=== PATIENT | male | born 1960 | race Asian ===

== ENCOUNTER 2016-08-25 22:05 | Emergency (ER) | payer OTHER ==
[~2016-08-25] VITALS: Ht 172.7 cm; Wt 74.8 kg
[~2016-08-25 22:05] MED LIST: ALBU0.0912 IH; ASPI81EC98 PO; AZIL80TA PO; MECL-272 PO; METO50TE2 PO; MONT10TA35 PO; [UNRECOGNIZED DRUG - CODE] PO; [UNRECOGNIZED DRUG - CODE] PO; [UNRECOGNIZED DRUG - CODE] PO
[2016-08-25 22:19] VITALS: BP 169/99
--- NOTE | 2016-08-25 22:44 | NUR ---
PT TAKEN TO BED 7
--- NOTE | 2016-08-25 23:06 | NUR ---
55Y/M PATIENT PRESENTS TO ED WITH C/O EPIGASTRIC PAIN X 4 HRS. PT STATES PAIN STARTED AFTER HAVING DINNER, FEELING NAUSEUS, NO FEVER . DENIES DIARRHEA; SKIN IS PINK/WARM/DRY; AAOX4 WITH EVEN AND STEADY GAIT; LUNGS CLEAR BL; HR EVEN AND REGULAR; PT DENIES ANY FEVER, CP, SOB, OR COUGH AT THIS TIME; PATIENT STATES PAIN OF 10/10 AT THIS TIME; VSS; PATIENT POSITIONED FOR COMFORT; HOB ELEVATED; BEDRAILS UP X2; BED DOWN. ER MD MADE AWARE OF PT STATUS.
--- NOTE | 2016-08-25 23:08 | NUR ---
Dr. Luevano evaluating patient at bedside.
[2016-08-25] MEDS ORDERED: KETOROLAC 30 MG/ML VIAL IVP ONE (23:15)
[2016-08-25] MEDS ORDERED: ONDANSETRON 4 MG/2 ML VIAL IVP ONE (23:15)
[2016-08-25] MEDS ORDERED: NACL 0.9% 1,000 ML IV ONE (23:15)
[2016-08-25 23:48] LABS: HEMATOCRIT 47.4 % (36-52); HEMOGLOBIN 15.3 g/dL (12.0-18.0); MEAN CORPUSCULAR HEMOGLOBIN 26 pg (27-31); MEAN CORPUSCULAR HGB CONC 32 g/dL (33-37); MEAN CORPUSCULAR VOLUME 81 fL (80-94); PLATELET COUNT (AUTO) 504 K/uL (140-450); RED BLOOD CELL COUNT(AUTO) 5.88 MIL/uL (4.20-6.10); RED CELL DISTRIBUTION WIDTH 13.4 % (11.6-13.7); WHITE BLOOD COUNT (AUTO) 10.4 K/uL (4.8-10.8)
[2016-08-25 23:49] LABS: EOSINOPHILS % (MANUAL) 3 % (0-4); LYMPHOCYTES % (MANUAL) 23 % (20-46); MONOCYTES % (MANUAL) 8 % (5-12); NEUTROPHILS % (MANUAL) 66 (43-65)
[2016-08-25 23:52] LABS: ANION GAP 12.6 (8-16); CALCIUM 9.3 mg/dL (8.5-10.1); CARBON DIOXIDE 28.7 mmol/L (21-32); CREATININE 1.3 mg/dL (0.6-1.3); POTASSIUM 3.3 mmol/L (3.5-5.1); TOTAL BILIRUBIN 0.4 mg/dL (0.0-1.0)
[2016-08-25 23:53] LABS: ALBUMIN 4.5 g/dL (3.4-5.0); TOTAL PROTEIN, SERUM 8.3 g/dL (6.4-8.2)
--- NOTE | 2016-08-26 00:15 | NUR ---
TAKE PT. TO US
--- NOTE | 2016-08-26 00:21 | NUR ---
PT RETURN FROM ULTRA [facility]
[2016-08-26] MEDS ORDERED: DICYCLOMINE HCL LIQUID 10 MG/5 ML UDC PO ONE (01:30)
[2016-08-26] MEDS ORDERED: LIDOCAINE VISCOUS 2% 20 ML UDC PO ONE (01:30)
[2016-08-26] MEDS ORDERED: ALUMINUM HYD/MAG/SIMETHICONE 30 ML UDC PO ONE (01:30)
--- NOTE | 2016-08-26 01:50 | NUR ---
Patient discharged with v/s stable. Written and verbal after care instructions given and explained. Patient alert, oriented and verbalized understanding of instructions. Ambulatory with steady gait. All questions addressed prior to discharge. ID band removed. Patient advised to follow up with PMD. Rx of PROTONIX 40 MG, TRAMADOL 50 MG, ZOFRAN ODT 4 MG, MAALOX given. Patient educated on indication of medication including possible reaction and side effects. Opportunity to ask questions provided and answered.
[2016-08-26 02:17] VITALS: BP 136/86
== END 2016-08-26 01:50 | disposition home or self-care (01) ==
LOC: MED 22:05
DX: K29.70 Gastritis, unspecified, without bleeding (principal); I10 Essential (primary) hypertension; J45.909 Unspecified asthma, uncomplicated; Z88.1 Allergy status to other antibiotic agents; Z88.6 Allergy status to analgesic agent
CPT/HCPCS: 36415; 76705; 80053; 83690; 85025; 96361; 96374; 96375; 99285; J1885; J2405; J7030

== ENCOUNTER 2016-10-13 11:10 | Emergency (ER) | payer OTHER ==
[~2016-10-13] VITALS: Ht 203.2 cm; Wt 72.6 kg
[2016-10-13 11:12] VITALS: BP 140/88
--- NOTE | 2016-10-13 11:25 | NUR ---
Pt ambualted to bed 7.
--- NOTE | 2016-10-13 11:28 | NUR ---
Patient taken to x-ray via w/c.
--- NOTE | 2016-10-13 11:32 | NUR ---
Patient back from XRAY via wheelchair per tech.
--- NOTE | 2016-10-13 11:50 | NUR ---
56/M c/o generalized weakness and chest tightness for about a week. Pt states he has hx of asthma and states he has not been feeling well for the past week. Pt also c/o cough and "weird" headache on and off the past week. Pt states he has used his inhaler with no improvement. Pt states he woke up the morning feeling worse, went to fill bottles of water at the store and states he felt worse and drove himself home. Pt states "I feel my chest tight." Chest rises and falls symmetrically. No use of accessory muscles. O2 saturation 99% on RA. Lungs diminshed all throughout. No cough present at this time but patient states he has a cough. AOX4, clear speech, ambulatory with steady gait. Stud Setter strong and equal bilaterally. Pushes strong and equal bilaterally. Radial and pedal pulses +2. No edema. Skin warm and dry, elastic, normal in color for ethnicity. VSS. Pt placed on cardiac montior, pulse oximetry, blood pressure monitoring. Placed in gown. Bed in lowest position, warm blanket provided. All needs addressed. Pt awaiting ERMD.
--- NOTE | 2016-10-13 12:31 | NUR ---
Dr. Jones evaluating patient at bedside.
[2016-10-13 12:42] LABS: BASOPHILS # (AUTO) 0.2 K/uL (0.00-0.22); BASOPHILS % (AUTO) 3.4 % (0.0-2.0); EOSINOPHILS # (AUTO) 0.3 K/uL (0-0.4); EOSINOPHILS % (AUTO) 3.8 % (0.0-4.0); HEMATOCRIT 42.8 % (36-52); HEMOGLOBIN 13.9 g/dL (12.0-18.0); LYMPHOCYTES # (AUTO) 1.3 K/uL (2.0-11.5); LYMPHOCYTES % (AUTO) 18.8 % (20.5-51.1); MEAN CORPUSCULAR HEMOGLOBIN 26 pg (27-31); MEAN CORPUSCULAR HGB CONC 33 g/dL (33-37); MEAN CORPUSCULAR VOLUME 81 fL (80-94); MONOCYTES # (AUTO) 0.4 K/uL (0.8-1.0); MONOCYTES % (AUTO) 5.7 % (1.7-9.3); NEUTROPHILS # (AUTO) 4.5 K/uL (1.8-7.7); NEUTROPHILS % (AUTO) 68.3 % (42.2-75.2); PLATELET COUNT (AUTO) 454 K/uL (140-450); RED BLOOD CELL COUNT(AUTO) 5.28 MIL/uL (4.20-6.10); RED CELL DISTRIBUTION WIDTH 14.2 % (11.6-13.7); WHITE BLOOD COUNT (AUTO) 6.7 K/uL (4.8-10.8)
[2016-10-13 13:02] LABS: ANION GAP 8.4 (8-16); CALCIUM 8.2 mg/dL (8.5-10.1); CARBON DIOXIDE 29.2 mmol/L (21-32); CREATININE 1.1 mg/dL (0.7-1.3); POTASSIUM 3.6 mmol/L (3.5-5.1)
[2016-10-13 13:10] LABS: ALBUMIN 3.8 g/dL (3.4-5.0); TOTAL BILIRUBIN 0.3 mg/dL (0.0-1.0); TOTAL PROTEIN, SERUM 7.2 g/dL (6.4-8.2)
--- NOTE | 2016-10-13 13:10 | NUR ---
Timmy Ontiveros. Pt provided with orange juice and meal tray ordered. Dr. Jones made aware.
--- NOTE | 2016-10-13 13:37 | NUR ---
Food tray provided to patient.
[2016-10-13 14:29] VITALS: BP 119/78
--- NOTE | 2016-10-13 14:29 | NUR ---
Patient discharged with v/s stable. Written and verbal after care instructions given and explained. Patient verbalized understanding. Ambulatory with STEADY GAIT. All questions addressed prior to discharge. Advised to follow up with PMD.
== END 2016-10-13 14:29 | disposition home or self-care (01) ==
LOC: MED 11:10
DX: R53.83 Other fatigue (principal); R06.02 Shortness of breath; R06.2 Wheezing; Z88.1 Allergy status to other antibiotic agents; Z88.5 Allergy status to narcotic agent; J45.909 Unspecified asthma, uncomplicated; I10 Essential (primary) hypertension
CPT/HCPCS: 36415; 71020; 80053; 81002; 82553; 82948; 84484; 85025; 93005; 99285

== ENCOUNTER 2016-12-23 15:15 | Emergency (ER) | payer OTHER ==
[~2016-12-23] VITALS: Ht 172.7 cm; Wt 73.9 kg
[~2016-12-23 15:15] MED LIST changes: -MECL-272 PO
[2016-12-23 15:26] VITALS: BP 135/83
--- NOTE | 2016-12-23 17:15 | NUR ---
PATIENT CALLED FROM LOBBY NO ANSWER PATIENT IS LWBS.
== END 2016-12-23 16:40 | disposition left against medical advice (07) ==
LOC: MED 15:15
DX: R06.02 Shortness of breath (principal); Z53.21 Procedure and treatment not carried out due to patient leaving prior to being seen by health care provider
CPT/HCPCS: 71020; 99281

== ENCOUNTER 2016-12-23 19:27 | Emergency (ER) | payer OTHER ==
[~2016-12-23] VITALS: Ht 172.7 cm; Wt 73.9 kg
[2016-12-23 19:37] VITALS: BP 146/100
--- NOTE | 2016-12-23 19:46 | NUR ---
EKG COMPLETED BY ALYSIA; SHOWN TO MARCIA JACKSON
--- NOTE | 2016-12-23 20:25 | NUR ---
PATIENT TO ER BED 6
--- NOTE | 2016-12-23 20:34 | NUR ---
PATIENT PRESENTS TO ED WITH C/O CHEST TIGHTNESS X 10 DAYS BUT WORSENING LAST 2 DAYS. PT STATES MY PAIN ABOUT 3/10 . DENIES N/V/D; SKIN IS PINK/WARM/DRY; AAOX4 WITH EVEN AND STEADY GAIT; LUNGS CLEAR BL; HR EVEN AND REGULAR; PT DENIES ANY FEVER, SOB, PATIENT STATES PAIN OF 3/10 AT THIS TIME; VSS; PATIENT POSITIONED FOR COMFORT; HOB ELEVATED; BEDRAILS UP X2; BED DOWN. ER MD MADE AWARE OF PT STATUS. PT VERBALIZED WITH A LIT BIT OF COUGHING.
--- NOTE | 2016-12-23 20:43 | NUR ---
PT IN THE PHONE AT THIS TIME, WILL CHECK PT AGAIN LATER.
--- NOTE | 2016-12-23 21:23 | NUR ---
DR. JACKSON AT BEDSIDE
[2016-12-23] MEDS ORDERED: ALBUTEROL SULFATE/IPRATROPIU 3 ML SOL IH ONE (21:25)
[2016-12-23] MEDS ORDERED: predniSONE 20 MG TAB PO ONE (21:25)
--- NOTE | 2016-12-23 21:35 | NUR ---
LAB AND RT AT BEDSIDE
--- NOTE | 2016-12-23 21:35 | NUR ---
Respiratory Therapist at bedside for respiratory intervention.
[2016-12-23 21:47] LABS: BASOPHILS # (AUTO) 0.1 K/uL (0.00-0.22); BASOPHILS % (AUTO) 0.8 % (0.0-2.0); EOSINOPHILS # (AUTO) 0.1 K/uL (0-0.4); EOSINOPHILS % (AUTO) 1.5 % (0.0-4.0); HEMATOCRIT 45.8 % (36-52); HEMOGLOBIN 14.4 g/dL (12.0-18.0); LYMPHOCYTES # (AUTO) 0.5 K/uL (2.0-11.5); LYMPHOCYTES % (AUTO) 5.6 % (20.5-51.1); MEAN CORPUSCULAR HEMOGLOBIN 26 pg (27-31); MEAN CORPUSCULAR HGB CONC 32 g/dL (33-37); MEAN CORPUSCULAR VOLUME 83 fL (80-94); MONOCYTES # (AUTO) 0.2 K/uL (0.8-1.0); NEUTROPHILS # (AUTO) 8.5 K/uL (1.8-7.7); NEUTROPHILS % (AUTO) 90.1 % (42.2-75.2); PLATELET COUNT (AUTO) 500 K/uL (140-450); RED BLOOD CELL COUNT(AUTO) 5.55 MIL/uL (4.20-6.10); RED CELL DISTRIBUTION WIDTH 13.7 % (11.6-13.7); WHITE BLOOD COUNT (AUTO) 9.4 K/uL (4.8-10.8)
[2016-12-23 22:04] LABS: PROTHROMBIN TIME 11.3 secs (10.8-13.4)
[2016-12-23 22:08] LABS: ALBUMIN 4.3 g/dL (3.4-5.0); ANION GAP 9.4 (8-16); CARBON DIOXIDE 28.3 mmol/L (21-32); CREATININE 1.3 mg/dL (0.7-1.3); POTASSIUM 3.7 mmol/L (3.5-5.1); TOTAL BILIRUBIN 0.3 mg/dL (0.0-1.0)
--- NOTE | 2016-12-23 22:24 | NUR ---
PT AAO, SLIGHT THROAT PAIN, ABLE TO USE URINAL OUTPUT 400, OFFER APPLE JUICE AND ONE CUP OF WATER AND PT ACCEPTED IT.VITAL SIGN STABLE.
--- NOTE | 2016-12-23 23:28 | NUR ---
XRAY AT BEDSIDE
[2016-12-24] VITALS: BP 132/77
--- NOTE | 2016-12-24 | NUR ---
Patient discharged with v/s stable. Written and verbal after care instructions given and explained. Patient alert, oriented and verbalized understanding of instructions. Ambulatory with steady gait. All questions addressed prior to discharge. ID band removed. Patient advised to follow up with PMD. Rx of Medrol dose pack given. Patient educated on indication of medication including possible reaction and side effects. Opportunity to ask questions provided and answered.
== END 2016-12-24 | disposition home or self-care (01) ==
LOC: MED 19:27
DX: J45.901 Unspecified asthma with (acute) exacerbation (principal); I10 Essential (primary) hypertension; Z88.1 Allergy status to other antibiotic agents; Z88.5 Allergy status to narcotic agent
CPT/HCPCS: 36415; 71010; 80053; 83880; 84484; 85025; 85610; 85730; 99285; J7512; J7620; Q0092

== ENCOUNTER 2017-04-15 07:49 | Emergency (ER) | payer OTHER ==
[~2017-04-15] VITALS: Ht 170.2 cm; Wt 77.1 kg
[~2017-04-15 07:49] MED LIST changes: +ALBUTEROL SULFATE/IPRATROPIU 3 ML SOL IH ONE
[2017-04-15 07:57] VITALS: BP 141/87
--- NOTE | 2017-04-15 08:08 | NUR ---
PATIENT PRESENTS TO ED WITH cough, nasal congestion, headache, bodyaches, fatigue, sob . PT STATES . DENIES N/V/D; SKIN IS PINK/WARM/DRY; AAOX4 WITH EVEN AND STEADY GAIT; LUNGS diminished CLEAR BL; HR EVEN AND REGULAR; PATIENT STATES PAIN OF 0/10 AT THIS TIME; VSS; PATIENT POSITIONED FOR COMFORT; ER MD MADE AWARE OF PT STATUS.
--- NOTE | 2017-04-15 08:33 | NUR ---
PATIENT TO OF1 AT THIS TIME.
[2017-04-15] MEDS ORDERED: OSELTAMIVIR PHOSPHATE 75 MG CAP PO SCH (09:00)
--- NOTE | 2017-04-15 09:52 | NUR ---
RT AT BEDSIDE.
[2017-04-15] MEDS ORDERED: ALBUTEROL SULFATE/IPRATROPIU 3 ML SOL IH ONE (10:10)
[2017-04-15 10:44] VITALS: BP 133/71
--- NOTE | 2017-04-15 10:44 | NUR ---
Patient discharged with v/s stable. Written and verbal after care instructions given and explained. Patient alert, oriented and verbalized understanding of instructions. Ambulatory with steady gait. All questions addressed prior to discharge. ID band removed. Patient advised to follow up with PMD. Rx of TAMIFLU, LEVAQUIN, MOTRIN, GUAFENUISEN given. Patient educated on indication of medication including possible reaction and side effects. Opportunity to ask questions provided and answered.
== END 2017-04-15 10:44 | disposition home or self-care (01) ==
LOC: MED 07:49
DX: J11.1 Influenza due to unidentified influenza virus with other respiratory manifestations (principal); J32.9 Chronic sinusitis, unspecified; J40 Bronchitis, not specified as acute or chronic; J45.909 Unspecified asthma, uncomplicated; Z79.899 Other long term (current) drug therapy; Z88.5 Allergy status to narcotic agent; Z88.1 Allergy status to other antibiotic agents; Z85.850 Personal history of malignant neoplasm of thyroid
CPT/HCPCS: 36415; 71045; 87804; 94640; 99285; J7620

== ENCOUNTER 2017-08-01 20:03 | Observation (INO) | payer OTHER ==
[~2017-08-01] VITALS: Ht 172.7 cm; Wt 74.4 kg
[~2017-08-01 20:03] MED LIST changes: -ALBUTEROL SULFATE/IPRATROPIU 3 ML SOL IH ONE
[2017-08-01 20:05] VITALS: BP 148/100
[2017-08-01] MEDS ORDERED: NACL 0.9% 1,000 ML IV ONE (22:25)
[2017-08-01] MEDS ORDERED: ASPIRIN 81 MG TAB.CHEW PO ONE (22:25)
[2017-08-01 22:50] LABS: BASOPHILS # (AUTO) 0.1 K/uL (0.00-0.22); BASOPHILS % (AUTO) 0.9 % (0.0-2.0); EOSINOPHILS # (AUTO) 0.3 K/uL (0-0.4); EOSINOPHILS % (AUTO) 5.5 % (0.0-4.0); HEMATOCRIT 40.7 % (36-52); HEMOGLOBIN 13.5 g/dL (12.0-18.0); LYMPHOCYTES # (AUTO) 1.4 K/uL (2.0-11.5); LYMPHOCYTES % (AUTO) 22.9 % (20.5-51.1); MEAN CORPUSCULAR HEMOGLOBIN 27 pg (27-31); MEAN CORPUSCULAR HGB CONC 33 g/dL (33-37); MONOCYTES # (AUTO) 0.7 K/uL (0.8-1.0); MONOCYTES % (AUTO) 11.8 % (1.7-9.3); NEUTROPHILS # (AUTO) 3.6 K/uL (1.8-7.7); NEUTROPHILS % (AUTO) 58.9 % (42.2-75.2); PLATELET COUNT (AUTO) 383 K/uL (140-450); RED BLOOD CELL COUNT(AUTO) 5.02 MIL/uL (4.20-6.10); RED CELL DISTRIBUTION WIDTH 14.4 % (11.6-13.7); WHITE BLOOD COUNT (AUTO) 6.1 K/uL (4.8-10.8)
[2017-08-01 23:00] LABS: ANION GAP 10.4 (8-16); CARBON DIOXIDE 29.8 mmol/L (21-32); CREATININE 1.1 mg/dL (0.7-1.3); POTASSIUM 3.2 mmol/L (3.5-5.1)
[2017-08-01 23:10] LABS: PROTHROMBIN TIME 10.6 secs (10.8-13.4)
[2017-08-01 23:14] LABS: ALBUMIN 3.9 g/dL (3.4-5.0); TOTAL BILIRUBIN 0.3 mg/dL (0.0-1.0)
[2017-08-01] MEDS ORDERED: POTASSIUM CHLORIDE 10 MEQ TABER PO ONE (23:15)
[2017-08-01] MEDS ORDERED: LISINOPRIL 10 MG TAB PO ONE (23:15)
[2017-08-01] MEDS ORDERED: NITROGLYCERIN 2% 1 GM PKT TP ONE (23:15)
[2017-08-01] MEDS ORDERED: fentaNYL 0.05 MG/ML VIAL IVP ONE (23:25)
[2017-08-01] MEDS ORDERED: HYDROcodone/APAP 5/325 MG 1 TAB TAB PO PRN (23:35)
[2017-08-01] MEDS ORDERED: ONDANSETRON 4 MG/2 ML VIAL IVP PRN (23:35)
[2017-08-01] MEDS ORDERED: NITROGLYCERIN 0.4 MG TAB SL PRN (23:35)
[2017-08-01] MEDS ORDERED: MORPHINE SULFATE 2 MG/ML SYR IVP PRN (23:35)
[2017-08-01] MEDS ORDERED: LORazepam 2 MG/ML VIAL IVP PRN (23:35)
[2017-08-01] MEDS ORDERED: ALBUTEROL 0.083% 2.5 MG/3 ML NEBU IH PRN (23:35)
[2017-08-01] MEDS ORDERED: ZOLPIDEM 5 MG TAB PO PRN (23:35)
[2017-08-01] MEDS ORDERED: ACETAMINOPHEN 325 MG TAB PO PRN (23:35)
[2017-08-01] MEDS ORDERED: ROC.25 PO (23:56)
[2017-08-01] MEDS ORDERED: BUDE1AER IH (23:56)
[2017-08-01] MEDS ORDERED: SYN.1 PO (23:56)
[2017-08-02] VITALS: BP 143/94
[2017-08-02 04:00] VITALS: BP 101/63
[2017-08-02 07:58] LABS: BASOPHILS # (AUTO) 0.1 K/uL (0.00-0.22); EOSINOPHILS # (AUTO) 0.3 K/uL (0-0.4); EOSINOPHILS % (AUTO) 3.7 % (0.0-4.0); HEMATOCRIT 42.3 % (36-52); HEMOGLOBIN 13.5 g/dL (12.0-18.0); LYMPHOCYTES # (AUTO) 2.5 K/uL (2.0-11.5); LYMPHOCYTES % (AUTO) 32.1 % (20.5-51.1); MEAN CORPUSCULAR HEMOGLOBIN 26 pg (27-31); MEAN CORPUSCULAR HGB CONC 32 g/dL (33-37); MEAN CORPUSCULAR VOLUME 81.4 fL (80-94); MONOCYTES # (AUTO) 0.6 K/uL (0.8-1.0); MONOCYTES % (AUTO) 7.5 % (1.7-9.3); NEUTROPHILS # (AUTO) 4.4 K/uL (1.8-7.7); NEUTROPHILS % (AUTO) 55.7 % (42.2-75.2); PLATELET COUNT (AUTO) 402 K/uL (140-450); RED BLOOD CELL COUNT(AUTO) 5.19 MIL/uL (4.20-6.10); RED CELL DISTRIBUTION WIDTH 14.7 % (11.6-13.7); WHITE BLOOD COUNT (AUTO) 7.9 K/uL (4.8-10.8)
[2017-08-02 08:00] VITALS: BP 103/58
[2017-08-02 08:51] LABS: ANION GAP 11.5 (8-16); CARBON DIOXIDE 27.2 mmol/L (21-32); CREATININE 1.1 mg/dL (0.7-1.3); POTASSIUM 3.7 mmol/L (3.5-5.1)
[2017-08-02] MEDS ORDERED: METOPROLOL SUCCINATE 50 MG TABER PO SCH (09:00)
[2017-08-02] MEDS ORDERED: ENOXAPARIN 40 MG/0.4 ML SYR SUBQ SCH (09:00)
[2017-08-02] MEDS ORDERED: METOPROLOL 25 MG TAB PO SCH (09:00)
[2017-08-02] MEDS ORDERED: MONTELUKAST SODIUM 10 MG TAB PO SCH (09:00)
[2017-08-02] MEDS ORDERED: ASPIRIN 81 MG TAB.CHEW PO SCH (09:00)
[2017-08-02] MEDS ORDERED: AZILSARTAN MEDOXOMIL 80 MG PO SCH (09:00)
[2017-08-02 09:07] LABS: CREATINE KINASE MB 1.1 ng/mL (0-3.6)
[2017-08-02 12:00] VITALS: BP 99/61
[2017-08-02 16:00] VITALS: BP 111/68
== END 2017-08-02 17:55 | disposition home or self-care (01) ==
LOC: MED 20:03 → MTU 23:41
PROVIDERS: ADMIT Hospitalist; ATTEND Hospitalist
DX: R07.89 Other chest pain (principal); I10 Essential (primary) hypertension; E11.9 Type 2 diabetes mellitus without complications; I34.1 Nonrheumatic mitral (valve) prolapse; E03.9 Hypothyroidism, unspecified; I25.10 Atherosclerotic heart disease of native coronary artery without angina pectoris; J45.909 Unspecified asthma, uncomplicated
CPT/HCPCS: 36415; 71045; 80048; 80053; 82550; 82553; 82948; 84484; 85025; 85610; 85730; 87081; 93017; 94640; 94660; 96360; 96372; 99285; G0378; J1650; J7030; J7613

== ENCOUNTER 2017-08-12 07:09 | Emergency (ER) | payer OTHER ==
[~2017-08-12] VITALS: Ht 172.7 cm; Wt 75.0 kg
[~2017-08-12 07:09] MED LIST changes: +BUDE1AER IH; +ROC.25 PO; +SYN.1 PO
[2017-08-12 07:25] VITALS: BP 128/84
--- NOTE | 2017-08-12 07:28 | NUR ---
PT AMBULATES TO BED 11
--- NOTE | 2017-08-12 07:30 | NUR ---
56 YO M BIB SELF W/ C/O FEELING LIKE HE HAS CHEST CONGESTION, A "TIGHT, ASTHMA-ATTACK" TYPE FEELING BUT PT DENIES HAVING SOB. STATES HE HAS A STUFFY NOSE AND PRODUCTIVE-COUGH (CLEAR PHLEGM) X 1 WEEK. PT REPORTS HE WAS HERE 08/01/17 AND STAYED OVER NIGHT, THEN WENT TO [facility] AND RECEIVED ANTIBIOTICS BUT HAS BEEN UNABLE TO FILL THEM DUE TO INSURANCE STATING THEY WILL NOT COVER IT AND THE PHYSICIAN HAS NOT CHANGED THE ANTIBIOTIC AT THIS TIME. PT REQUESTING AN ANTIBIOTIC. PT A & O X 4. GCS 15. CMS INTACT. RR EVEN AND UNLABORED AT THIS TIME. LUNG SOUNDS CLEAR. ABD SOFT, NON-TENDER. ER MD IQBAL NOTIFIED. PT NEEDS MET. SAFETY PRECAUTIONS IN PLACE. WILL CONTINUE TO MONITOR.
[2017-08-12] MEDS ORDERED: IPRATROPIUM 0.02% 0.5 MG/2.5 ML NEBU INH ONE (07:40)
[2017-08-12] MEDS ORDERED: ALBUTEROL 0.083% 2.5 MG/3 ML NEBU INH ONE (07:40)
--- NOTE | 2017-08-12 08:30 | NUR ---
Pt resting comfortably in bed at this time. will continue to monitor.
[2017-08-12 09:23] VITALS: BP 124/78
--- NOTE | 2017-08-12 09:23 | NUR ---
Patient discharged with v/s stable. Written and verbal after care instructions given and explained. Patient alert, oriented and verbalized understanding of instructions. Ambulatory with steady gait. All questions addressed prior to discharge. ID band removed. Patient advised to follow up with PMD. Rx of Bethel Alford given. Patient educated on indication of medication including possible reaction and side effects. Opportunity to ask questions provided and answered.
== END 2017-08-12 09:23 | disposition home or self-care (01) ==
LOC: MED 07:09
DX: J45.901 Unspecified asthma with (acute) exacerbation (principal); I10 Essential (primary) hypertension; Z85.850 Personal history of malignant neoplasm of thyroid; E89.0 Postprocedural hypothyroidism; Z88.1 Allergy status to other antibiotic agents; Z88.6 Allergy status to analgesic agent; Z79.82 Long term (current) use of aspirin
CPT/HCPCS: 94640; 99283; J7613; J7644

== ENCOUNTER 2017-08-29 19:49 | Emergency (ER) | payer OTHER ==
[~2017-08-29] VITALS: Ht 170.2 cm; Wt 73.0 kg
[2017-08-29 19:51] VITALS: BP 148/90
[2017-08-29 22:49] VITALS: BP 132/85
== END 2017-08-29 22:49 | disposition home or self-care (01) ==
LOC: MED 19:49
DX: J02.9 Acute pharyngitis, unspecified (principal); R05 Cough; R06.02 Shortness of breath; J45.909 Unspecified asthma, uncomplicated; I10 Essential (primary) hypertension; E07.9 Disorder of thyroid, unspecified; I25.10 Atherosclerotic heart disease of native coronary artery without angina pectoris; Z85.850 Personal history of malignant neoplasm of thyroid; Z79.899 Other long term (current) drug therapy; Z88.5 Allergy status to narcotic agent; Z88.1 Allergy status to other antibiotic agents
CPT/HCPCS: 71046; 99284

== ENCOUNTER 2018-01-10 05:19 | Emergency (ER) | payer OTHER ==
[~2018-01-10] VITALS: Ht 170.2 cm; Wt 74.8 kg
[2018-01-10 05:29] VITALS: BP 120/87
--- NOTE | 2018-01-10 05:34 | NUR ---
PT PRESENTS TO ED WITH SUPRAPUBIC LOWER ABD PAIN RADIATING TO LEFT LOWER BACK AND BURNING WITH URINATION. PT STATES TREATED FOR UTI X1 WEEK AGO AND FINISHED X1 WK OF ANTIBIOTICS. PT STATES PAIN UNRELIEVED. PT HAS HX OF KIDNEY STONES AND HAD THYROID CANCER X8 MONTHS AGO AND HAD THYROID REMOVED. PT ALSO HAS SECOND C/O GENERALIZED FATIGUE X2 WKS. HE IS CONCERNED REGARDING FATIGUE CONSIDERING HIS RECENT DX OF THYROID CANCER. VSS. AFEBRILE. POSITIONED IN BED FOR COMFORT. A&OX4. ER MD AWARE. CONTINUE TO MONITOR.
--- NOTE | 2018-01-10 05:34 | NUR ---
TO BED # 9 AMBULATORY, REPORT GIVEN TO OLMAN MOHAN
[2018-01-10] MEDS ORDERED: KETOROLAC 30 MG/ML VIAL IVP ONE (05:55)
[2018-01-10] MEDS ORDERED: NACL 0.9% 1,000 ML IV ONE (05:55)
[2018-01-10] MEDS ORDERED: ONDANSETRON 4 MG/2 ML VIAL IVP ONE (05:55)
--- NOTE | 2018-01-10 06:43 | NUR ---
PT RETURN FROM CT
[2018-01-10 06:59] LABS: BASOPHILS # (AUTO) 0.1 K/uL (0.00-0.22); BASOPHILS % (AUTO) 1.4 % (0.0-2.0); EOSINOPHILS # (AUTO) 0.4 K/uL (0-0.4); EOSINOPHILS % (AUTO) 5.9 % (0.0-4.0); HEMATOCRIT 42.2 % (36-52); LYMPHOCYTES # (AUTO) 1.4 K/uL (2.0-11.5); LYMPHOCYTES % (AUTO) 23.2 % (20.5-51.1); MEAN CORPUSCULAR HEMOGLOBIN 27 pg (27-31); MEAN CORPUSCULAR HGB CONC 33 g/dL (33-37); MEAN CORPUSCULAR VOLUME 80.4 fL (80-94); MONOCYTES # (AUTO) 0.6 K/uL (0.8-1.0); MONOCYTES % (AUTO) 9.4 % (1.7-9.3); NEUTROPHILS # (AUTO) 3.7 K/uL (1.8-7.7); NEUTROPHILS % (AUTO) 60.1 % (42.2-75.2); PLATELET COUNT (AUTO) 433 K/uL (140-450); RED BLOOD CELL COUNT(AUTO) 5.25 MIL/uL (4.20-6.10); WHITE BLOOD COUNT (AUTO) 6.2 K/uL (4.8-10.8)
--- NOTE | 2018-01-10 07:04 | NUR ---
PT STATES PAIN 5/10 AND ACCEPTABLE LEVEL OF PAIN AT THIS TIME. VSS. CONTINUE TO MONITOR.
--- NOTE | 2018-01-10 07:17 | NUR ---
PT. RESTING IN BED , RR EVEN AND UNLABORED. PT. PROVIDED WITH SOCKS. VSS. WILL CONTINUE TO MONITOR.
[2018-01-10 07:19] LABS: ALBUMIN 3.8 g/dL (3.4-5.0); ANION GAP 8.2 (8-16); CARBON DIOXIDE 29.3 mmol/L (21-32); CREATININE 1.2 mg/dL (0.7-1.3); POTASSIUM 3.5 mmol/L (3.5-5.1); TOTAL BILIRUBIN 0.5 mg/dL (0.0-1.0)
[2018-01-10 07:55] LABS: APPEARANCE,URINE CLEAR (CLEAR); BILIRUBIN,URINE NEGATIVE (NEGATIVE); BLOOD, URINE NEGATIVE (NEGATIVE); COLOR,URINE YELLOW (YELLOW); LEUKOCYTE ESTERASE ,URINE NEGATIVE (NEGATIVE); NITRITE, URINE NEGATIVE (NEGATIVE); UGLUCOSE NEGATIVE (NEGATIVE)
[2018-01-10 08:03] LABS: RBC,URINE 0-5 (RARE) /HPF (0-5)
--- NOTE | 2018-01-10 08:30 | NUR ---
Patient discharged with v/s stable. Written and verbal after care instructions given and explained. Patient alert, oriented and verbalized understanding of instructions. Ambulatory with steady gait. All questions addressed prior to discharge. ID band removed. Patient advised to follow up with PMD. Rx of ZOFRAN, NORCO 5/325, AND CEPHELAXIN 500MG given. Patient educated on indication of medication including possible reaction and side effects. Opportunity to ask questions provided and answered.
[2018-01-10 08:34] VITALS: BP 120/78
== END 2018-01-10 08:30 | disposition home or self-care (01) ==
LOC: MED 05:19
DX: N20.0 Calculus of kidney (principal); J45.909 Unspecified asthma, uncomplicated; Z85.850 Personal history of malignant neoplasm of thyroid; I10 Essential (primary) hypertension; Z90.89 Acquired absence of other organs; Z79.899 Other long term (current) drug therapy; Z88.5 Allergy status to narcotic agent; Z88.1 Allergy status to other antibiotic agents
CPT/HCPCS: 36415; 74176; 80053; 81001; 83690; 85025; 87086; 96374; 96375; 99285; J1885; J2405; J7030

== ENCOUNTER 2018-03-15 08:05 | Inpatient (IN) | payer OTHER ==
[~2018-03-15] VITALS: Ht 170.2 cm; Wt 73.9 kg
[2018-03-15 08:15] VITALS: BP 147/88
--- NOTE | 2018-03-15 08:17 | NUR ---
PATIENT PRESENTS TO ED WITH C/O ELEVATED BLOOD PRESSURE X 1WK WITH H/A, DIZZINESS, NUMBNESS ON BOTH HANDS, RT ARM PAIN; DENIES V/D, HX; HTN, DM, MITRAL VALVE PROLAPSE, ASTHMA, SLEEP APNEA . AAOX4 WITH EVEN AND STEADY GAIT; LUNGS CLEAR BL; HR EVEN AND REGULAR; PT DENIES ANY FEVER, CP, SOB, OR COUGH AT THIS TIME; SKIN IS PINK/WARM/DRY; PATIENT STATES HEADACHE 5/10 AT THIS TIME; VSS; PATIENT POSITIONED FOR COMFORT; HOB ELEVATED; BEDRAILS UP X2; BED DOWN. ER MD MADE AWARE OF PT STATUS.
--- NOTE | 2018-03-15 08:20 | NUR ---
Patient being evaluated by physician at bedside.
[2018-03-15] MEDS ORDERED: ASPIRIN 81 MG TAB.CHEW PO ONE (08:25)
--- NOTE | 2018-03-15 08:29 | NUR ---
X-RAY AT BEDSIDE
[2018-03-15 08:48] LABS: BASOPHILS # (AUTO) 0.1 K/uL (0.00-0.22); BASOPHILS % (AUTO) 0.9 % (0.0-2.0); EOSINOPHILS # (AUTO) 0.3 K/uL (0-0.4); EOSINOPHILS % (AUTO) 4.1 % (0.0-4.0); HEMATOCRIT 43.3 % (36-52); LYMPHOCYTES # (AUTO) 1.2 K/uL (2.0-11.5); MEAN CORPUSCULAR HEMOGLOBIN 26 pg (27-31); MEAN CORPUSCULAR HGB CONC 32 g/dL (33-37); MONOCYTES # (AUTO) 0.5 K/uL (0.8-1.0); NEUTROPHILS # (AUTO) 4.5 K/uL (1.8-7.7); PLATELET COUNT (AUTO) 395 K/uL (140-450); RED BLOOD CELL COUNT(AUTO) 5.35 MIL/uL (4.20-6.10); RED CELL DISTRIBUTION WIDTH 15.4 % (11.6-13.7); WHITE BLOOD COUNT (AUTO) 6.6 K/uL (4.8-10.8)
[2018-03-15 08:56] LABS: CARBON DIOXIDE 27.4 mmol/L (21-32); POTASSIUM 3.4 mmol/L (3.5-5.1)
--- NOTE | 2018-03-15 09:01 | NUR ---
PT STATED HUNGRY, DR. IQBAL COMFIRED OK TO EAT, SNACK OFFERED.
[2018-03-15 09:02] LABS: ALBUMIN 3.7 g/dL (3.4-5.0); TOTAL BILIRUBIN 0.4 mg/dL (0.0-1.0)
[2018-03-15 10:27] LABS: APPEARANCE,URINE CLEAR (CLEAR); BILIRUBIN,URINE NEGATIVE (NEGATIVE); BLOOD, URINE NEGATIVE (NEGATIVE); COLOR,URINE YELLOW (YELLOW); LEUKOCYTE ESTERASE ,URINE NEGATIVE (NEGATIVE); NITRITE, URINE NEGATIVE (NEGATIVE); UGLUCOSE NEGATIVE (NEGATIVE)
[2018-03-15] MEDS ORDERED: ONDANSETRON 4 MG/2 ML VIAL IVP PRN (10:45)
[2018-03-15] MEDS ORDERED: ACETAMINOPHEN 325 MG TAB PO PRN (10:45)
--- NOTE | 2018-03-15 11:10 | NUR ---
PT IS RESTING IN BED, CP 2/10 AT THIS TIME, STATED FEELING BETTER.
--- NOTE | 2018-03-15 11:35 | NUR ---
RECEIVED REPORT FROM ER NURSE AT BEDSIDE. PT ADMITTED FROM HOME.PT CC NUMBNESS IN HIS BOTH UPPER EXTREMITIES . ADMITTING DIAGNOSIS CHEST PAIN. SKIN IS INTACT. VS RECORDED BP 145/91, HR 58, T 97.5, RR 18, DENIES PAIN O2 SAT 97% ON RA. EDUCATED ON USING CALL LIGHT. PT IS AMBULATORY. CARDIAC DIET. HAS RT FA 20 G , SALINE LOCK. NO SIGN OF DISTRESS NOTED. WILL CONTINUE TO MONITOR PT.
--- NOTE | 2018-03-15 11:35 | NUR ---
Patient will be admitted to care of DR. OLIVERA. Admited to TELE. Will go to room 120A. Belongings list completed. Report to KIMBERLEE OVERTON AT BEDSIDE, PT IS IN STABLE CONDITION AT THIS TIME. .
--- NOTE | 2018-03-15 12:22 | NUR ---
PT EATING HIS LUNCH. PT HAS BIPAP MACHINE AT BEDSIDE. INFORMED THAT ITS HOSPITAL POLICY THAT NO EQUIPMENT FROM OUTSIDE CAN BE USED IN HOSPITAL. CAN PROVIDE THE BIPAP MACHINE, IF PT NEEDS TO USE. ASSESSED PT NEUROLOGICAL STATUS. AOX4, CLEAR VOICE. HAS STABLE GAIT. HAS EQUAL STRENGTH ON BOTH UPPER AND THE LOWER EXTREMITIES. PT DENIES ANY CHEST PAIN OR DISCOMFORT AT THIS TIME. WILL CONTINUE TO MONITOR PT.
[2018-03-15] MEDS ORDERED: INSULIN LISPRO SLIDING SCALE 100 UNITS/ML VIAL SUBQ PRN (13:45)
[2018-03-15] MEDS ORDERED: DEXTROSE 50% 50 ML SYR IVP PRN (13:55)
[2018-03-15 14:25] LABS: CREATINE KINASE MB 0.8 ng/mL (0-3.6)
[2018-03-15 16:00] VITALS: BP 126/82
--- NOTE | 2018-03-15 16:30 | NUR ---
CHECKED ON PT. SLEEPING ON HIS BED. TOOK HIS VS, WITHIN NORMAL RANGE. BLOOD SUGAR NOTED 127, DENIES ANY PAIN AT THIS TIME. PT APPEARS CALM, RESTING COMFORTABLY IN HIS BED. NO SIGN OF DISTRESS NOTED. INFORMED PT TO USE CALL LIGHT FOR ANY HELP. WILL CONTINUE TO MONITOR PT.
[2018-03-15] MEDS: BLOOD GLUCOSE MONITORING 1 DEV DEV FS SCH ×2 (16:40→21:39)
--- NOTE | 2018-03-15 18:16 | NUR ---
CHECKED ON PT . PT UP IN BED, SED RESTROOM. DENIES ANY PAIN AT THIS TIME. STATES PT IS HUNGRY. GAVE HIM SOME JAELLO AND JUICE. INFORMED HIM THAT LUNCH WILL BE AROUND 1830 . GAVE HIM WARM BLANKET. NO SIGN OF DISTRESS NOTED. CALL LIGHT WITHIN PT REACH. WILL CONTINUE TO MONITOR PT.
--- NOTE | 2018-03-15 19:19 | NUR ---
ENDORSED PT TO PM NURSE AT BEDSIDE. PT LYING ON HIS BED. GAVE TYLENOL FAR PAIN . NO SIGN OF DISTRESS. PT STABLE AT THIS TIME.
--- NOTE | 2018-03-15 19:23 | NUR ---
RECEIVED REPORT FROM AM NURSE AT BEDSIDE. TELE PT.WITH CPAP AT BEDSIDE BUT OFF AT THIS TIME. PT IS AMBULATORY. CARDIAC DIET. HAS RT FA 20 G , SALINE LOCK. NO SIGN OF DISTRESS NOTED. WILL CONTINUE TO MONITOR PT.
[2018-03-15 20:00] VITALS: BP 133/85
[2018-03-15] MEDS: ALBUTEROL 0.083% 2.5 MG/3 ML NEBU INH SCH (20:31)
[2018-03-15] MEDS: BUDESONIDE 0.5 MG/2 ML NEBU INH SCH (20:31)
--- NOTE | 2018-03-15 20:44 | NUR ---
RECEIVED PATIENT ON ROOM AIR, O2 SAT 98%. SCHEDULED BREATHING TREATMENT ADMINISTERED. ORAL CARE PROVIDED POST TX. PATIENT TOLERATED TX WELL, NO ADVERSE SIDE EFFECTS. WILL CONTINUE TO MONITOR.
--- NOTE | 2018-03-15 20:45 | NUR ---
PLACED PATIENT ON CPAP. EDUCATED PATIENT ON MASK DONNING AND DOFFING. PT TOLERATING WELL. NO RESPIRATORY DISTRESS NOTED AT THIS TIME. WILL CONTINUE TO MONITOR. Addendum: 03/16/18 at 0021 by India Ferrer RT SKIN PROTECTIVE BARRIER IN PLACE.
[2018-03-15] MEDS ORDERED: ALBUTEROL HFA MDI 90 MCG/ACTUATION 8 GM INH SCH (21:00)
[2018-03-15] MEDS ORDERED: NON-FORMULARY ITEM (Budesonide/Formoterol Fumarate* (Symbicort 160-4.5 Mcg Inhaler*) 2 PUF IH SCH (21:00)
--- NOTE | 2018-03-15 21:00 | NUR ---
PT AWAKE. BLOOD SUGAR CHECKED WITHIN NORMAL RANGE. DENIES ANY PAIN AT THIS TIME. PT APPEARS CALM, RESTING COMFORTABLY IN HIS BED. NO SIGN OF DISTRESS NOTED. INFORMED PT TO USE CALL LIGHT FOR ANY HELP. WILL CONTINUE TO MONITOR PT.
--- NOTE | 2018-03-15 23:00 | NUR ---
CALLED RT TO HELP WITH CPAP MACHINE TO CHECK ON THE ALARM.
--- NOTE | 2018-03-15 23:00 | NUR ---
CPAP MACHINE KEPT ALARMING DESPITE TROUBLE SHOOTING. CPAP MACHINE REPLACED WITH DIFFERENT MACHINE. NIPPV CONTINUED. PATIENT TOLERATING WELL. PATIENT REFUSES TO WEAR PROTECTIVE SKIN BARRIER GEL. NO DISTRESS NOTED AT THIS TIME. WILL CONTINUE TO MONITOR. Addendum: 03/16/18 at 0021 by India Ferrer RT SKIN INTACT. NO REDNESS.
[2018-03-16] VITALS: BP 135/86
--- NOTE | 2018-03-16 03:20 | NUR ---
PT SLEEPING. ALARM ON CPAP KEPS ON BEEPING. SUGGESTED BY RT TO CHANGE THE MASK TO SMALLER ONE. PT DOES NOT WANT THE MASK TO BE CHANGED. HE SAID ITS FINE. ALARM NOT BEEPING AFTERWARDS. WILL CONTINUE TO MONITOR.
[2018-03-16 04:00] VITALS: BP 131/88
--- NOTE | 2018-03-16 06:49 | NUR ---
PT SLEEPING, STILL ON CPAP MACHINE. COMFORTABLE NO CHEST PAIN COMPLAINTS AT THIS TIME. RESPIRATIONS EVEN AND UNLABORED. PT IN STABLE CONDITION. WILL ENDORSE TO NEXT SHIFT.
[2018-03-16] MEDS: ALBUTEROL 0.083% 2.5 MG/3 ML NEBU INH SCH (07:08)
[2018-03-16] MEDS: BUDESONIDE 0.5 MG/2 ML NEBU INH SCH (07:08)
--- NOTE | 2018-03-16 07:20 | NUR ---
REPORT RECEIVED FROM CAR VARNISHER NURSE, PT SLEEPING QUIETLY IN NAD, RESP EVEN UNLABORED ON RA, SKIN WARM DRY COLOR WNL, PT AROUSES EASILY BY VOICE, DENIES PAIN OR DISCOMFORT, POC REVIEWED, NO IMMEDIATE NEEDS AT THIS TIME, ALL SAFETY MEASURES IN PLACE, WILL CONTINUE TO MONITOR.
[2018-03-16] MEDS: BLOOD GLUCOSE MONITORING 1 DEV DEV FS SCH ×2 (07:32→11:50)
[2018-03-16 08:00] VITALS: BP 136/75
[2018-03-16 08:07] LABS: BASOPHILS # (AUTO) 0.1 K/uL (0.00-0.22); BASOPHILS % (AUTO) 1.4 % (0.0-2.0); EOSINOPHILS # (AUTO) 0.4 K/uL (0-0.4); EOSINOPHILS % (AUTO) 5.6 % (0.0-4.0); HEMATOCRIT 41.8 % (36-52); HEMOGLOBIN 13.6 g/dL (12.0-18.0); LYMPHOCYTES # (AUTO) 1.4 K/uL (2.0-11.5); LYMPHOCYTES % (AUTO) 21.5 % (20.5-51.1); MEAN CORPUSCULAR HEMOGLOBIN 26 pg (27-31); MEAN CORPUSCULAR HGB CONC 33 g/dL (33-37); MEAN CORPUSCULAR VOLUME 80.7 fL (80-94); MONOCYTES # (AUTO) 0.7 K/uL (0.8-1.0); MONOCYTES % (AUTO) 10.8 % (1.7-9.3); NEUTROPHILS % (AUTO) 60.7 % (42.2-75.2); PLATELET COUNT (AUTO) 393 K/uL (140-450); RED BLOOD CELL COUNT(AUTO) 5.17 MIL/uL (4.20-6.10); RED CELL DISTRIBUTION WIDTH 15.3 % (11.6-13.7); WHITE BLOOD COUNT (AUTO) 6.6 K/uL (4.8-10.8)
[2018-03-16 08:21] LABS: ALBUMIN 3.5 g/dL (3.4-5.0); CARBON DIOXIDE 28.3 mmol/L (21-32); CREATININE 0.9 mg/dL (0.7-1.3); POTASSIUM 3.3 mmol/L (3.5-5.1); TOTAL BILIRUBIN 0.4 mg/dL (0.0-1.0)
[2018-03-16] MEDS ORDERED: LOSARTAN 50 MG TAB PO SCH (09:00)
[2018-03-16] MEDS ORDERED: METOPROLOL SUCCINATE 50 MG TABER PO SCH (09:00)
[2018-03-16] MEDS ORDERED: NON-FORMULARY ITEM (Aspirin (Aspir 81) 81 MG) PO SCH (09:00)
[2018-03-16] MEDS ORDERED: CHLORPHENIRAMINE 4 MG TAB PO SCH (09:00)
[2018-03-16] MEDS ORDERED: MONTELUKAST SODIUM 10 MG TAB PO SCH (09:00)
[2018-03-16] MEDS ORDERED: ASPIRIN 81 MG TAB.CHEW PO SCH (09:00)
[2018-03-16] MEDS ORDERED: ENOXAPARIN 40 MG/0.4 ML SYR SUBQ SCH (09:00)
[2018-03-16] MEDS ORDERED: CALCITRIOL 0.25 MCG CAPLF PO SCH (09:00)
[2018-03-16] MEDS ORDERED: AZILSARTAN MEDOXOMIL 80 MG PO SCH (09:00)
[2018-03-16] MEDS ORDERED: LEVOTHYROXINE 0.1 MG TAB PO SCH (09:00)
--- NOTE | 2018-03-16 09:10 | NUR ---
PATIENT HAS BEEN SCREENED AND CATEGORIZED HIGH NUTRITION RISK. PATIENT WILL BE SEEN WITHIN 1-2 DAYS OF ADMISSION. 03/16/[address]
--- NOTE | 2018-03-16 09:11 | NUR ---
AM MEDS GIVEN, PT CHRIS WELL, PT SITTING UP RESTING QUIETLY, DENIES ANY CHEST PAIN OR DISCOMFORT, DENIES ANY IMMEDIATE NEEDS, WILL CONTINUE TO MONITOR.
[2018-03-16 09:45] LABS: CREATINE KINASE MB 0.6 ng/mL (0-3.6)
--- NOTE | 2018-03-16 11:55 | NUR ---
VITALS TAKEN, PT DENIES PAIN, DENIES CHEST PAIN, RESTING COMFORTABLY WATCHING TV, NO INSULIN NEEDED PER SLIDING SCALE, BS 128.
[2018-03-16 12:00] VITALS: BP 140/80
--- NOTE | 2018-03-16 13:30 | NUR ---
DR OLIVERA AT BEDSIDE.
[2018-03-16] MEDS ORDERED: POTASSIUM CHLORIDE 10 MEQ TABER PO SCH (14:00)
[2018-03-16] MEDS ORDERED: PNEUMOCOCCAL VACCINE 23 MCG/0.5 ML VIAL IMVAC SCH (14:15)
--- NOTE | 2018-03-16 14:21 | NUR ---
CM NOTE PER AUBREY OF [facility] (PCP) PH# [phone], PATIENT IS SCHEDULED FOR OUTPATIENT FOLLOW UP ON MARCH 20, 2018 10:00 AM AT THE CLINIC IN [address] [place] [address] [address] [phone]. NOTIFIED RADHA, NURSE OF PATIENT, TO GIVE INSTRUCTIONS UPON DISCHARGE.
--- NOTE | 2018-03-16 15:05 | NUR ---
DC INSTRUCTION GIVEN AND EXPLAINED TO PT, PT VERBALIZED FULL UNDERSTANDING, PT UP OUT OF BED WITHOUT PROBLEM, DENIES PAIN OR SOB, IV DC'D, CATH TIP INTACT, BLEEDING CONTROLLED, AWAITING RIDE HOME.
--- NOTE | 2018-03-16 15:17 | NUR ---
03/16/18 RD INITIAL ASSESSMENT COMPLETED PLEASE REFER TO NUTRITION ASSESSMENT UNDER CARE ACTIVITY FOR ESTIMATED NUTRITIONAL NEEDS. 1. CONTINUE CARDIAC DIET TOLERATED 2. RECOMMEND CCHO 60 GM AND CARDIAC DIET TOLERATED 3. RD PROVIDED NUTRITION EDUCATION ON DIABETES. PT ACCEPTED. 4. RD TO FOLLOW-UP 5-7 DAYS, LOW RISK BRIAN BISWAS RD
--- NOTE | 2018-03-16 15:45 | NUR ---
PT ESCORTED OUT TO FRONT LOBBY IN WHEELCHAIR, DC HOME NOW WITH DAUGHTER.
== END 2018-03-16 15:45 | disposition home or self-care (01) | DRG 756 ==
LOC: MED 08:05 → MTU 10:43
PROVIDERS: ADMIT Hospitalist; ATTEND Hospitalist
PROC: 5A09357 Assistance with Respiratory Ventilation, Less than 24 Consecutive Hours, Continuous Positive Airway Pressure (ICD-10-PCS; 2018-03-15)
PROC: 3E0234Z Introduction of Serum, Toxoid and Vaccine into Muscle, Percutaneous Approach (ICD-10-PCS; principal; 2018-03-16)
DX: F41.9 Anxiety disorder, unspecified (principal); E11.9 Type 2 diabetes mellitus without complications; R07.9 Chest pain, unspecified; I25.10 Atherosclerotic heart disease of native coronary artery without angina pectoris; E78.5 Hyperlipidemia, unspecified; I10 Essential (primary) hypertension; J45.909 Unspecified asthma, uncomplicated; G47.30 Sleep apnea, unspecified; Z85.850 Personal history of malignant neoplasm of thyroid; Z88.1 Allergy status to other antibiotic agents; Z79.82 Long term (current) use of aspirin; Z79.899 Other long term (current) drug therapy; Z90.89 Acquired absence of other organs; Z87.891 Personal history of nicotine dependence; Z23 Encounter for immunization; Z79.84 Long term (current) use of oral hypoglycemic drugs
CPT/HCPCS: 36415; 71045; 80053; 81003; 82550; 82553; 82948; 83880; 84439; 84443; 84484; 85025; 87081; 90732; 94640; 94660; 99285; J1650; J1815; J7613; J7626; Q0092

== ENCOUNTER 2018-03-21 17:50 | Emergency (ER) | payer OTHER ==
[~2018-03-21] VITALS: Ht 170.2 cm; Wt 76.2 kg
[2018-03-21 17:50] VITALS: BP 147/89
--- NOTE | 2018-03-21 17:50 | NUR ---
PATIENT AMBULATED TO ER BED 8.
--- NOTE | 2018-03-21 18:10 | NUR ---
PT. BIB FAMILY. PT. C/O HIGH BLOOD PRESSURE SINCE FOR TWO WEEKS, 168/ 103 SYSTOLIC AT HOME, AND NECK PAIN 4/10 FOR 3 DAYS. PATIENT STATES HE FEELS WEAK AND DIZZY. RX----METOPROLOL PMH---HTN, DM, ASTHMA
[2018-03-21] MEDS ORDERED: LORazepam 1 MG TAB PO ONE (18:25)
--- NOTE | 2018-03-21 19:07 | NUR ---
GAVE REPORT TO SUNIL MOHAN.
--- NOTE | 2018-03-21 19:10 | NUR ---
ASSUMED CARE OF PT AT THIS TIME. PT AWAITS MD DISPOSITION. NNAMDI. AILYN. WILL CONTINUE TO MONITOR.
[2018-03-21 19:25] VITALS: BP 138/92
== END 2018-03-21 19:25 | disposition home or self-care (01) ==
LOC: MED 17:52
DX: I10 Essential (primary) hypertension (principal); G44.209 Tension-type headache, unspecified, not intractable; M62.830 Muscle spasm of back; J45.909 Unspecified asthma, uncomplicated; E11.9 Type 2 diabetes mellitus without complications; E07.9 Disorder of thyroid, unspecified; Z88.1 Allergy status to other antibiotic agents; Z88.5 Allergy status to narcotic agent; Z79.82 Long term (current) use of aspirin; Z79.84 Long term (current) use of oral hypoglycemic drugs; Z79.899 Other long term (current) drug therapy
CPT/HCPCS: 82948; 93005; 99283

== ENCOUNTER 2018-06-08 15:55 | Emergency (ER) | payer OTHER ==
[~2018-06-08] VITALS: Ht 170.2 cm; Wt 75.3 kg
[2018-06-08 16:10] VITALS: BP 133/81
--- NOTE | 2018-06-08 16:10 | NUR ---
PT BEDSIDE TRIAGED IN BED 5 EKG PERFORMED AT BEDSIDE
--- NOTE | 2018-06-08 16:20 | NUR ---
PT BIB SELF C/O PALPITATIONS X 10 DAYS. DENIES CP/NVD. NO DIAPHORESIS NOTED. EKG PERFORMED AT TRIAGE. DENIES PAIN. PT STATES " I HAVE JUST FELT MORE TIRED AND A LITTLE DIZZY WHEN I GET UP . PT. C/O SOB . RR EVEN AND UNLABORED. PT ABLE TO SPEAK IN FULL AND COMPLETE SENTENCES. LS: CLEAR BILAT THROUGHOUT . ER MD MADE AWARE. NO EDEMA NOTED. WILL CONTINUE TO MONITOR. SAFETY PRECAUTIONS IN PLACE. HX---THYROID CA/REMOVAL, VALVE PROLAPSE, HTN, ASTHMA MEDS---LEVOTHYROXINE, METOPROLOL, ELAVIL, CLARITIN, CACITOL, VENTOLIN SYMBICORT
[2018-06-08 18:21] VITALS: BP 133/81
--- NOTE | 2018-06-08 18:22 | NUR ---
Patient discharged with v/s stable. Written and verbal after care instructions given and explained. Patient verbalized understanding. Ambulatory with steady gait. All questions addressed prior to discharge. Advised to follow up with PMD.
== END 2018-06-08 18:22 | disposition home or self-care (01) ==
LOC: MED 15:55
DX: R00.2 Palpitations (principal); R06.02 Shortness of breath; J45.909 Unspecified asthma, uncomplicated; E11.9 Type 2 diabetes mellitus without complications; I10 Essential (primary) hypertension; E07.9 Disorder of thyroid, unspecified; Z88.5 Allergy status to narcotic agent; Z88.1 Allergy status to other antibiotic agents; Z79.82 Long term (current) use of aspirin; Z79.899 Other long term (current) drug therapy
CPT/HCPCS: 93005; 99283

== ENCOUNTER 2019-11-05 10:51 | Emergency (ER) | payer OTHER, SELFPAY ==
[~2019-11-05] VITALS: Ht 172.7 cm; Wt 78.5 kg
[2019-11-05 11:00] VITALS: BP 156/95
--- NOTE | 2019-11-05 12:54 | NUR ---
SEEN BY PEDRO WRIGHT IN THE TENT. NO NURSING INTERVENTION DONE
--- NOTE | 2019-11-05 12:56 | NUR ---
covid swab collected and sent to lab
[2019-11-05 13:31] VITALS: BP 156/95
--- NOTE | 2019-11-05 13:32 | NUR ---
Patient discharged with v/s stable. Written and verbal after care instructions given and explained. Patient alert, oriented and verbalized understanding of instructions. Ambulatory with steady gait. All questions addressed prior to discharge. ID band removed. Patient advised to follow up with PMD. Rx of CODEIN/PROMETHAZINE & TYLENOL given. Patient educated on indication of medication including possible reaction and side effects. Opportunity to ask questions provided and answered.
--- NOTE | 2019-11-08 10:32 | NUR ---
Covid-19 result shows not detected. Copy of results given to Kathleen at infection control
== END 2019-11-05 13:32 | disposition home or self-care (01) ==
LOC: MED 10:51
DX: R05 Cough (principal); E11.9 Type 2 diabetes mellitus without complications; E07.9 Disorder of thyroid, unspecified; I10 Essential (primary) hypertension; J45.909 Unspecified asthma, uncomplicated; Z20.828 Contact with and (suspected) exposure to other viral communicable diseases; Z88.6 Allergy status to analgesic agent; Z88.1 Allergy status to other antibiotic agents; Z79.899 Other long term (current) drug therapy
CPT/HCPCS: 71045; 99284; U0003

== ENCOUNTER 2020-06-15 00:25 | Emergency (ER) | payer OTHER, SELFPAY ==
[~2020-06-15] VITALS: Ht 172.7 cm; Wt 78.9 kg
[2020-06-15 00:28] VITALS: BP 191/113
--- NOTE | 2020-06-15 00:36 | NUR ---
PT AMBULATED TO ER BED 9
--- NOTE | 2020-06-15 00:41 | NUR ---
59 YO M BIB SELF FOR C/O ABD PAIN. PT RECENTLY WAS SEEN @ [facility] FOR [facility]. PT STATES PAIN IS 8/10. + N/V. HYPER ACTIVE BOWEL SOUNDS. ABD TENDER TO TOUCH. NO FEVER NOTED. WILL UPDATE ERMD WILL CONTINUE TO OBSERVE. HX: HTN, GALL STONES AX: AMOXICILLIN, MORPHINE
[2020-06-15] MEDS ORDERED: LIDOCAINE VISCOUS 2% 20 ML UDC ONE (00:42)
[2020-06-15] MEDS ORDERED: ALUMINUM HYD/MAG/SIMETHICONE 30 ML UDC ONE (00:42)
--- NOTE | 2020-06-15 00:43 | NUR ---
Dr. Thomas examining patient.
[2020-06-15] MEDS: DICYCLOMINE HCL LIQUID 20 MG, ALUMINUM HYD/MAG/SIMETHICONE 30 ML, LIDOCAINE VISCOUS 2% ... PO ONE ×3 (00:49)
[2020-06-15] MEDS ORDERED: ACET-8386 PO ×2 (00:54→03:14)
[2020-06-15] MEDS: KETOROLAC 60 MG/2 ML VIAL IM ONE (01:02)
--- NOTE | 2020-06-15 01:05 | NUR ---
PT C/O ABD PAIN R SIDED AFTER GI COCKTAIL, TORADOL GIVEN FOR PAIN. WILL CONTINUE TO OBSERVE
[2020-06-15] MEDS: fentaNYL citrate 0.05 MG/ML VIAL IM ONE (01:50)
--- NOTE | 2020-06-15 02:02 | NUR ---
PT C/O PAIN @ 08/18, ERMD MADE AWARE. FENTANYL GIVEN PER MD ORDER. WILL CONTINUE TO OBSERVE.
--- NOTE | 2020-06-15 02:45 | NUR ---
PT HAS EYES CLOSED; AROUSABLE, RESP CLEAR EVEN UNLABORED, FLACC 0. WILL CONTINUE TO OBSERVE.
[2020-06-15 03:10] VITALS: BP 153/62
== END 2020-06-15 03:10 | disposition home or self-care (01) ==
LOC: MED 00:25
DX: R10.13 Epigastric pain (principal); J45.909 Unspecified asthma, uncomplicated; E11.9 Type 2 diabetes mellitus without complications; I10 Essential (primary) hypertension; E07.9 Disorder of thyroid, unspecified; Z88.1 Allergy status to other antibiotic agents; Z88.5 Allergy status to narcotic agent; Z79.899 Other long term (current) drug therapy; Z79.82 Long term (current) use of aspirin
CPT/HCPCS: 96372; 99284; J1885; J3010

== ENCOUNTER 2020-08-10 11:54 | Emergency (ER) | payer OTHER, SELFPAY ==
[~2020-08-10] VITALS: Ht 172.7 cm; Wt 78.0 kg
[~2020-08-10 11:54] MED LIST changes: +ACET-8386 PO; +BUDE180P IH; +CIPR500P1 PO; +METR500T1 PO; +ONDA4TAB PO; +[UNRECOGNIZED DRUG - CODE]
[2020-08-10 12:00] VITALS: BP 168/109
--- NOTE | 2020-08-10 12:16 | NUR ---
PT COMPLAINS OF SOB, COUGH, NECK PAIN X 3 WEEKS, WORSENED THE PAST 2 DAYS PMH - ASTHMA, HTN, DM2
[2020-08-10] MEDS ORDERED: KETOROLAC 60 MG/2 ML VIAL IM ONE (12:50)
[2020-08-10] MEDS ORDERED: PROM118S5 PO (14:24)
[2020-08-10] MEDS ORDERED: NAPR-54 PO (14:24)
[2020-08-10] MEDS ORDERED: METH750T5 PO (14:24)
[2020-08-10 15:03] VITALS: BP 146/81
== END 2020-08-10 14:48 | disposition home or self-care (01) ==
LOC: MED 11:54
DX: M54.2 Cervicalgia (principal); R06.02 Shortness of breath; R05 Cough; J45.909 Unspecified asthma, uncomplicated; I10 Essential (primary) hypertension; E11.9 Type 2 diabetes mellitus without complications; E03.9 Hypothyroidism, unspecified; Z88.1 Allergy status to other antibiotic agents; Z88.5 Allergy status to narcotic agent; Z79.899 Other long term (current) drug therapy; Z79.82 Long term (current) use of aspirin; Z90.49 Acquired absence of other specified parts of digestive tract; Z98.890 Other specified postprocedural states
CPT/HCPCS: 71045; 72050; 96372; 99284; J1885

== ENCOUNTER 2021-02-06 20:36 | Emergency (ER) | payer OTHER ==
[~2021-02-06] VITALS: Ht 172.7 cm; Wt 80.3 kg
[~2021-02-06 20:36] MED LIST changes: +METH750T5 PO; +NAPR-54 PO; +PROM118S5 PO
[2021-02-06 20:44] VITALS: BP 156/99
--- NOTE | 2021-02-06 20:49 | NUR ---
AMBULATES TO BED 9 FROM TRIAGE
[2021-02-06] MEDS ORDERED: ACETAMINOPHEN 325 MG TAB PO ONE (21:10)
[2021-02-06] MEDS ORDERED: ALBUTEROL SULFATE/IPRATROPIU 3 ML SOL IH ONE (21:10)
[2021-02-06] MEDS ORDERED: levoFLOXacin 500 MG TAB PO ONE (21:10)
[2021-02-06] MEDS ORDERED: BENZONATATE 100 MG CAPLF PO SCH (21:10)
[2021-02-06 21:34] LABS: BASOPHILS # (AUTO) 0.1 K/uL (0.00-0.22); BASOPHILS % (AUTO) 1.2 % (0.0-2.0); EOSINOPHILS # (AUTO) 0.6 K/uL (0-0.4); EOSINOPHILS % (AUTO) 6.3 % (0.0-4.0); HEMATOCRIT 44.7 % (36-52); LYMPHOCYTES # (AUTO) 1.5 K/uL (2.0-11.5); LYMPHOCYTES % (AUTO) 16.4 % (20.5-51.1); MEAN CORPUSCULAR HEMOGLOBIN 28 pg (27-31); MEAN CORPUSCULAR HGB CONC 33 g/dL (33-37); MEAN CORPUSCULAR VOLUME 82.5 fL (80-94); MONOCYTES % (AUTO) 10.7 % (1.7-9.3); NEUTROPHILS # (AUTO) 6.1 K/uL (1.8-7.7); NEUTROPHILS % (AUTO) 65.4 % (42.2-75.2); PLATELET COUNT (AUTO) 490 K/uL (140-450); RED BLOOD CELL COUNT(AUTO) 5.42 MIL/uL (4.20-6.10); RED CELL DISTRIBUTION WIDTH 15.2 % (11.6-13.7); WHITE BLOOD COUNT (AUTO) 9.4 K/uL (4.8-10.8)
[2021-02-06 21:53] LABS: ANION GAP 13.2 (8-16); CARBON DIOXIDE 27.4 mmol/L (21-32); CREATININE 1.3 mg/dL (0.6-1.3); POTASSIUM 3.6 mmol/L (3.5-5.1)
[2021-02-06] MEDS ORDERED: BENZ-196 PO (22:12)
[2021-02-06] MEDS ORDERED: PRED20TA5 PO (22:12)
[2021-02-06] MEDS ORDERED: LEVO-315 PO (22:12)
[2021-02-06 22:31] VITALS: BP 156/99
== END 2021-02-06 22:31 | disposition home or self-care (01) ==
LOC: MED 20:36
DX: R05.9 Cough, unspecified (principal); R07.9 Chest pain, unspecified; J45.909 Unspecified asthma, uncomplicated; I10 Essential (primary) hypertension; Z98.890 Other specified postprocedural states; Z79.82 Long term (current) use of aspirin; Z88.1 Allergy status to other antibiotic agents; Z88.5 Allergy status to narcotic agent; Z79.899 Other long term (current) drug therapy
CPT/HCPCS: 36415; 71045; 80048; 84484; 85025; 93005; 99285; Q0092

== ENCOUNTER 2021-04-08 18:30 | Emergency (ER) | payer OTHER ==
[~2021-04-08] VITALS: Ht 172.7 cm; Wt 77.1 kg
[~2021-04-08 18:30] MED LIST changes: +BENZ-196 PO; +LEVO-315 PO; +PRED20TA5 PO
[2021-04-08 18:37] VITALS: BP 129/89
[2021-04-08] MEDS ORDERED: CODE5SYR5 PO (19:38)
[2021-04-08] MEDS ORDERED: PRED20TA5 PO (19:38)
[2021-04-08] MEDS ORDERED: AZIT250T4 PO (19:38)
[2021-04-08 19:56] VITALS: BP 129/89
--- NOTE | 2021-04-08 19:59 | NUR ---
Patient discharged with v/s stable, no nursing intervention required. Written and verbal after care instructions given and explained. Patient alert, oriented and verbalized understanding of instructions. Ambulatory with steady gait. All questions addressed prior to discharge. ID band removed. Patient advised to follow up with PMD. Rx of zithromax, promethazine, and prednisone given. Patient educated on indication of medication including possible reaction and side effects. Opportunity to ask questions provided and answered.
== END 2021-04-08 19:59 | disposition home or self-care (01) ==
LOC: MED 18:30
DX: J02.9 Acute pharyngitis, unspecified (principal); J45.909 Unspecified asthma, uncomplicated; I10 Essential (primary) hypertension; E07.9 Disorder of thyroid, unspecified; Z88.2 Allergy status to sulfonamides; Z88.1 Allergy status to other antibiotic agents; Z20.822 Contact with and (suspected) exposure to COVID-19
CPT/HCPCS: 71045; 99284

== ENCOUNTER 2021-06-01 21:14 | Emergency (ER) | payer OTHER ==
[~2021-06-01] VITALS: Ht 172.7 cm; Wt 80.7 kg
[~2021-06-01 21:14] MED LIST changes: +AZIT250T4 PO; +CODE5SYR5 PO
[2021-06-01 21:33] VITALS: BP 174/97
--- NOTE | 2021-06-01 21:39 | NUR ---
60 YO/M BIB SELF W C/O R SIDED NECK PAIN 9/10 PULSATING RADIATING TO HEAD X SEVERAL WEEKS "ALMOST A MONTH", + BL ARM AND LEG PAIN, BACK PAIN, BACK NUMBNESS, +BL ARM ANDLEG NUMBNESS, WEAKNESS, AND TINGLING. PT ALSO REPORTS NECK PAIN WORSENS WHEN SWALLOWING. PT ALSO REPORTS SLIGHT SOB AND CHEST DISCOMFORT, AND DIARRHEA, SYMPTOMS BEGAN TO APPEARS AFTER HAVING COVID IN MARCH 2021. PT DENIES ANY DIZZYNESS, BLURRY VISION, N/V, FEVER, CHILLS. PT AOX4, GCS 15. PT TOOK TYELNOL W MILD RELIEF. PT CONNECTED TO MONITOR. ERMD MADE AWARE OF PT STATUS. PMH: HTN, DIABETES, ASTHMA ALLERGIES: MORPHINE
--- NOTE | 2021-06-01 22:08 | NUR ---
PT TO CT VIA WHEELCHAIR.
[2021-06-01] MEDS ORDERED: KETOROLAC 30 MG/ML VIAL IVP ONE (22:10)
[2021-06-01 22:29] LABS: BASOPHILS # (AUTO) 0.1 K/uL (0.00-0.22); BASOPHILS % (AUTO) 1.1 % (0.0-2.0); EOSINOPHILS # (AUTO) 0.8 K/uL (0-0.4); EOSINOPHILS % (AUTO) 6.9 % (0.0-4.0); HEMATOCRIT 46.5 % (36-52); HEMOGLOBIN 15.5 g/dL (12.0-18.0); LYMPHOCYTES # (AUTO) 2.1 K/uL (2.0-11.5); MEAN CORPUSCULAR HEMOGLOBIN 28 pg (27-31); MEAN CORPUSCULAR HGB CONC 33 g/dL (33-37); MEAN CORPUSCULAR VOLUME 82.6 fL (80-94); NEUTROPHILS # (AUTO) 8.2 K/uL (1.8-7.7); PLATELET COUNT (AUTO) 518 K/uL (140-450); RED BLOOD CELL COUNT(AUTO) 5.64 MIL/uL (4.20-6.10); RED CELL DISTRIBUTION WIDTH 15.8 % (11.6-13.7); WHITE BLOOD COUNT (AUTO) 12.3 K/uL (4.8-10.8)
[2021-06-01 22:45] LABS: ALBUMIN 4.3 g/dL (3.4-5.0); ANION GAP 13.2 (8-16); CARBON DIOXIDE 28.3 mmol/L (21-32); POTASSIUM 3.5 mmol/L (3.5-5.1); TOTAL BILIRUBIN 0.4 mg/dL (0.0-1.0)
--- NOTE | 2021-06-01 23:10 | NUR ---
PT REPORTS SLIGHT NECK PAIN IMPROVEMENT TO 8/10, WOULD LIKE MEDICATION FOR PAIN. ERMD MADE AWARE.
[2021-06-01] MEDS ORDERED: HYDROmorphone PFS 2 MG/ML SYR IVP ONE (23:15)
[2021-06-01 23:27] LABS: APPEARANCE,URINE CLEAR (CLEAR); BILIRUBIN,URINE NEGATIVE (NEGATIVE); BLOOD, URINE NEGATIVE (NEGATIVE); COLOR,URINE YELLOW (YELLOW); LEUKOCYTE ESTERASE ,URINE NEGATIVE (NEGATIVE); NITRITE, URINE NEGATIVE (NEGATIVE); UGLUCOSE NEGATIVE (NEGATIVE)
--- NOTE | 2021-06-02 00:04 | NUR ---
PT VOMITING, BP 159/103, ERMD MADE AWARE. PT PROVIDED W EMESIS BAG.
[2021-06-02] MEDS ORDERED: ONDANSETRON 4 MG/2 ML VIAL IVP ONE (00:05)
[2021-06-02] MEDS ORDERED: ENALAPRILAT 2.5 MG/2 ML VIAL IVP ONE (00:05)
[2021-06-02] MEDS ORDERED: LISI10TA30 PO (01:16)
[2021-06-02 01:22] VITALS: BP 128/80
== END 2021-06-02 01:20 | disposition home or self-care (01) ==
LOC: MED 21:14
DX: R51.9 Headache, unspecified (principal); U09.9 Post COVID-19 condition, unspecified; I10 Essential (primary) hypertension; J45.909 Unspecified asthma, uncomplicated; E07.9 Disorder of thyroid, unspecified; Z88.5 Allergy status to narcotic agent; Z88.1 Allergy status to other antibiotic agents; Z79.899 Other long term (current) drug therapy; Z20.822 Contact with and (suspected) exposure to COVID-19
CPT/HCPCS: 36415; 70450; 80053; 81003; 85025; 87040; 87426; 93005; 96374; 96375; 99285; J1170; J1885; J2405; J3490

== ENCOUNTER 2021-07-14 10:33 | Emergency (ER) | payer OTHER, SELFPAY ==
[~2021-07-14] VITALS: Ht 172.7 cm; Wt 81.9 kg
[~2021-07-14 10:33] MED LIST changes: +LISI10TA30 PO
[2021-07-14 10:42] VITALS: BP 148/62
[2021-07-14] MEDS ORDERED: ALBUTEROL SULFATE/IPRATROPIU 3 ML SOL IH ONE (12:25)
[2021-07-14] MEDS ORDERED: predniSONE 20 MG TAB PO ONE ×2 (12:25)
[2021-07-14] MEDS ORDERED: PRED20TA5 PO (12:57)
[2021-07-14] MEDS ORDERED: PROM118S5 PO (12:57)
[2021-07-14 13:15] VITALS: BP 129/74
== END 2021-07-14 13:15 | disposition home or self-care (01) ==
LOC: MED 10:33
DX: J45.909 Unspecified asthma, uncomplicated (principal); E11.9 Type 2 diabetes mellitus without complications; I10 Essential (primary) hypertension; Z86.39 Personal history of other endocrine, nutritional and metabolic disease; Z79.899 Other long term (current) drug therapy; Z79.2 Long term (current) use of antibiotics; Z79.1 Long term (current) use of non-steroidal anti-inflammatories (NSAID); Z79.891 Long term (current) use of opiate analgesic; Z79.82 Long term (current) use of aspirin; Z88.5 Allergy status to narcotic agent; Z88.0 Allergy status to penicillin
CPT/HCPCS: 71046; 93005; 94640; 99283; J7512

== ENCOUNTER 2021-09-03 23:30 | Emergency (ER) | payer OTHER ==
[~2021-09-03] VITALS: Ht 172.7 cm; Wt 79.4 kg
[2021-09-03 23:35] VITALS: BP 139/90
--- NOTE | 2021-09-03 23:41 | NUR ---
PT TAKEN TO ER BED 06
--- NOTE | 2021-09-04 | NUR ---
61/M BIB SELF C/O COUGHING, CONGESTION, IRRITATION IN THROAT. PATIENT STATED THAT HE HAS PAIN IN CHEST WITH COUGHING. PATIENT WAS SEEN HERE LAST MONTH FOR SAME COMPLAINTS. PATIENT STATED HE HAD COVID IN THE PAST WITH SIMILAR SYMPTOMS. PATIENT PRESENTS WITH A CONGESTED COUGH, RR EVEN AND BILATERAL. NO S/S OF RR DISTRESS. SKIN WARM AND INTACT. PATIENT PLACED IN BED WITH BLANKET. BED LOW AND LOCKED. SIDE RAIL UP FOR SAFETY. ALL NEEDS MET ALLERGIES AMOXICILLIN, MORPHINE
[2021-09-04] MEDS ORDERED: ALBUTEROL SULFATE/IPRATROPIU 3 ML SOL IH ONE (00:05)
--- NOTE | 2021-09-04 00:10 | NUR ---
RT @ BEDSIDE FOR TREATMENT
--- NOTE | 2021-09-04 00:31 | NUR ---
RAD AT BEDSIDE
--- NOTE | 2021-09-04 00:31 | NUR ---
LAB AT BEDSIDE
[2021-09-04 00:51] LABS: BASOPHILS # (AUTO) 0.2 K/uL (0.00-0.22); BASOPHILS % (AUTO) 1.4 % (0.0-2.0); EOSINOPHILS # (AUTO) 0.7 K/uL (0-0.4); EOSINOPHILS % (AUTO) 5.9 % (0.0-4.0); HEMATOCRIT 41.1 % (36-52); HEMOGLOBIN 13.6 g/dL (12.0-18.0); LYMPHOCYTES # (AUTO) 3.2 K/uL (2.0-11.5); LYMPHOCYTES % (AUTO) 26.8 % (20.5-51.1); MEAN CORPUSCULAR HEMOGLOBIN 27 pg (27-31); MEAN CORPUSCULAR HGB CONC 33 g/dL (33-37); MONOCYTES % (AUTO) 8.8 % (1.7-9.3); NEUTROPHILS # (AUTO) 6.7 K/uL (1.8-7.7); NEUTROPHILS % (AUTO) 57.1 % (42.2-75.2); PLATELET COUNT (AUTO) 531 K/uL (140-450); RED BLOOD CELL COUNT(AUTO) 5.07 MIL/uL (4.20-6.10); RED CELL DISTRIBUTION WIDTH 15.8 % (11.6-13.7); WHITE BLOOD COUNT (AUTO) 11.8 K/uL (4.8-10.8)
[2021-09-04 01:08] LABS: ALBUMIN 3.7 g/dL (3.4-5.0); ANION GAP 10.4 (8-16); ASPARTATE AMINOTRANSFERASE 20 U/L (15-37); CARBON DIOXIDE 29.8 mmol/L (21-32); CHLORIDE 107 mmol/L (98-107); CREATININE 1.1 mg/dL (0.6-1.3); GFR ARICAN-AMERICAN 88 mL/min (>90); GLUCOSE 141 mg/dL (74-106); POTASSIUM 3.2 mmol/L (3.5-5.1); SODIUM SERUM 144 mmol/L (136-145); TOTAL BILIRUBIN 0.3 mg/dL (0.0-1.0); UREA NITROGEN, BLOOD 14 mg/dL (7-18)
[2021-09-04] MEDS ORDERED: guaiFENesin 20 MG/ML UDC PO ONE (01:40)
--- NOTE | 2021-09-04 02:00 | NUR ---
MEDICAED PER ERMDS ORDER, TOLERATED WELL.
[2021-09-04] MEDS ORDERED: guaiFENesin DM 200/20 MG-10 ML 10 ML UDC ONE (02:01)
[2021-09-04] MEDS ORDERED: PRED20TA5 PO (02:19)
[2021-09-04] MEDS ORDERED: AZIT250T4 PO (02:19)
[2021-09-04] MEDS ORDERED: ROB PO (02:19)
[2021-09-04 02:35] VITALS: BP 126/63
--- NOTE | 2021-09-04 02:35 | NUR ---
Patient discharged with v/s stable. Written and verbal after care instructions given on Chronic Bronchitis and explained. Patient alert, oriented and verbalized understanding of instructions. Ambulatory with steady gait. All questions addressed prior to discharge. ID band removed. Patient advised to follow up with PMD. Rx of Azithromycin, Prednisone, and Guaifenesin given.
--- NOTE | 2021-09-04 02:37 | NUR ---
Chart checked and completed.
== END 2021-09-04 02:35 | disposition home or self-care (01) ==
LOC: MED 23:30
DX: J42 Unspecified chronic bronchitis (principal); J45.909 Unspecified asthma, uncomplicated; I10 Essential (primary) hypertension; E07.9 Disorder of thyroid, unspecified; Z79.899 Other long term (current) drug therapy; Z79.82 Long term (current) use of aspirin; Z88.1 Allergy status to other antibiotic agents; Z88.5 Allergy status to narcotic agent
CPT/HCPCS: 36415; 71045; 80053; 84484; 85025; 93005; 99285; Q0092

== ENCOUNTER 2022-07-17 10:21 | Emergency (ER) | payer OTHER ==
[~2022-07-17] VITALS: Ht 172.7 cm; Wt 82.1 kg
[~2022-07-17 10:21] MED LIST changes: -ACET-8386 PO; +ACET-8905 PO; -LEVO-315 PO; +LEVO-481 PO; +MONT-72 PO; -MONT10TA35 PO; +ROB PO
[2022-07-17 10:26] VITALS: BP 169/102
--- NOTE | 2022-07-17 10:35 | NUR ---
61/M WALKED IN C/O UNWITNESSED SYNCOPAL EPISODE X 15 MIN. DENEIS FALL OR TRAUMA. REPORTS WAKING UP IN COUCH. PT ALSO REPORTS SORE THROAT X SEVERAL YEARS. DENIES DIFFICULTY BREATHING OR SWALLOWING. PMH: COPD, HTN, DM, COPD, ASTHMA SX: THYROIDECTOMY 3-4 YEARS
--- NOTE | 2022-07-17 11:11 | NUR ---
BLOOD DRAWN AND SENT TO LAB
[2022-07-17 11:27] LABS: BASOPHILS # (AUTO) 0.1 K/uL (0.00-0.22); BASOPHILS % (AUTO) 1.2 % (0.0-2.0); EOSINOPHILS # (AUTO) 0.7 K/uL (0-0.4); EOSINOPHILS % (AUTO) 6.8 % (0.0-4.0); HEMATOCRIT 46.5 % (36-52); HEMOGLOBIN 15.2 g/dL (12.0-18.0); LYMPHOCYTES # (AUTO) 1.9 K/uL (2.0-11.5); MEAN CORPUSCULAR HEMOGLOBIN 27 pg (27-31); MEAN CORPUSCULAR HGB CONC 33 g/dL (33-37); MEAN CORPUSCULAR VOLUME 82.4 fL (80-94); MONOCYTES # (AUTO) 0.6 K/uL (0.8-1.0); MONOCYTES % (AUTO) 6.8 % (1.7-9.3); NEUTROPHILS # (AUTO) 6.2 K/uL (1.8-7.7); NEUTROPHILS % (AUTO) 65.2 % (42.2-75.2); PLATELET COUNT (AUTO) 557 K/uL (140-450); RED BLOOD CELL COUNT(AUTO) 5.64 MIL/uL (4.20-6.10); RED CELL DISTRIBUTION WIDTH 16.2 % (11.6-13.7); WHITE BLOOD COUNT (AUTO) 9.5 K/uL (4.8-10.8)
[2022-07-17 12:29] LABS: ANION GAP 15.2 (8-16); CARBON DIOXIDE 26.3 mmol/L (21-32); CREATININE 1.1 mg/dL (0.6-1.3); POTASSIUM 3.5 mmol/L (3.5-5.1)
[2022-07-17] MEDS ORDERED: ALBUTEROL 0.083% 2.5 MG/3 ML NEBU INH ONE (12:45)
[2022-07-17] MEDS ORDERED: IPRATROPIUM 0.02% 0.5 MG/2.5 ML NEBU INH ONE (12:45)
[2022-07-17 13:18] VITALS: BP 154/75
[2022-07-17] MEDS ORDERED: ALBU0.0912 IH (13:49)
[2022-07-17] MEDS ORDERED: PRED20TA5 PO ×2 (13:49→14:07)
[2022-07-17] MEDS ORDERED: [UNRECOGNIZED DRUG - CODE] PO (13:50)
[2022-07-17] MEDS ORDERED: ALBU0.0912 INH (14:07)
--- NOTE | 2022-07-17 14:07 | NUR ---
PT REPORTS NOT EATING MEAL TODAY. BS 73, PROVIDE JUICE AND CRACKER. ERMD MADE AWARE.
[2022-07-17] MEDS ORDERED: GUAI118L81 PO ×2 (14:08→14:11)
[2022-07-17] MEDS ORDERED: DEXT118S25 PO (14:09)
== END 2022-07-17 14:08 | disposition home or self-care (01) ==
LOC: MED 10:21
DX: R07.0 Pain in throat (principal); R07.9 Chest pain, unspecified; R55 Syncope and collapse; J45.909 Unspecified asthma, uncomplicated; I10 Essential (primary) hypertension; E03.9 Hypothyroidism, unspecified; Z88.5 Allergy status to narcotic agent; Z88.1 Allergy status to other antibiotic agents; Z79.4 Long term (current) use of insulin; Z79.899 Other long term (current) drug therapy
CPT/HCPCS: 36415; 70360; 80048; 84443; 84484; 85025; 93005; 94640; 99285; J7613; J7644

== ENCOUNTER 2022-10-28 20:25 | Inpatient (IN) | payer OTHER ==
[~2022-10-28] VITALS: Ht 172.7 cm; Wt 79.4 kg
[~2022-10-28 20:25] MED LIST changes: +ALBU0.0912 INH; +GUAI118L81 PO
--- NOTE | 2022-10-28 20:29 | NUR ---
PT TAKEN TO BED 10
[2022-10-28 20:33] VITALS: BP 126/81; PULSE 78; RESP 21; TEMP 98.2; O2SAT 95
--- NOTE | 2022-10-28 20:50 | NUR ---
Brunilda khan in ED - 10/28/22 at 2128 by [email or web address] Pt BIB self with c/o chest pain. Started a week ago but worsenuinbg
--- NOTE | 2022-10-28 20:50 | NUR ---
Pt. BIB self with c/o chest pain. Started a week ago and worsening today. 7/10 pain scale and it is radiating to his left shoulder and arm. PMHx of HTN, DM, and Thyroid removal 5 yrs ago. On his maintenance medication. With allergic reaction on MORPHINE. EKG done. IV Cannula started at left hand G. 20. Blood extracted and sent to lab.
--- NOTE | 2022-10-28 20:54 | NUR ---
Xray by bedside at this time.
--- NOTE | 2022-10-28 20:56 | NUR ---
Labs collected and sent to lab
[2022-10-28 21:05] LABS: BASOPHILS # (AUTO) 0.1 K/uL (0.00-0.22); EOSINOPHILS # (AUTO) 0.6 K/uL (0-0.4); EOSINOPHILS % (AUTO) 5.8 % (0.0-4.0); HEMOGLOBIN 14.2 g/dL (12.0-18.0); LYMPHOCYTES # (AUTO) 2.1 K/uL (2.0-11.5); LYMPHOCYTES % (AUTO) 19.9 % (20.5-51.1); MEAN CORPUSCULAR HEMOGLOBIN 27 pg (27-31); MEAN CORPUSCULAR HGB CONC 33 g/dL (33-37); MEAN CORPUSCULAR VOLUME 81.7 fL (80-94); MONOCYTES # (AUTO) 0.9 K/uL (0.8-1.0); MONOCYTES % (AUTO) 8.7 % (1.7-9.3); NEUTROPHILS # (AUTO) 6.8 K/uL (1.8-7.7); NEUTROPHILS % (AUTO) 64.6 % (42.2-75.2); PLATELET COUNT (AUTO) 535 K/uL (140-450); RED BLOOD CELL COUNT(AUTO) 5.26 MIL/uL (4.20-6.10); RED CELL DISTRIBUTION WIDTH 14.9 % (11.6-13.7); WHITE BLOOD COUNT (AUTO) 10.5 K/uL (4.8-10.8)
[2022-10-28 21:16] LABS: ALBUMIN 3.7 g/dL (3.4-5.0); ANION GAP 10.8 (8-16); CARBON DIOXIDE 27.8 mmol/L (21-32); POTASSIUM 3.6 mmol/L (3.5-5.1); TOTAL BILIRUBIN 0.4 mg/dL (0.0-1.0)
[2022-10-28] MEDS ORDERED: ASPIRIN 325 MG TAB PO ONE (22:20)
[2022-10-29] VITALS (7 sets, daily range): BP systolic 116–136; BP diastolic 73–88; PULSE 55–95; RESP 16–18; TEMP 96.8–97.8; O2SAT 96–98
[2022-10-29] MEDS ORDERED: VIT1TABL36 PO (00:25)
--- NOTE | 2022-10-29 00:25 | NUR ---
MED RECONCILE AND BELONGINGS COMPLETED
--- NOTE | 2022-10-29 01:13 | NUR ---
Pt resting comfortably at this time. Rise and fall of chest noted. No s/s pain or distress.
[2022-10-29] MEDS ORDERED: MORPHINE SULFATE 2 MG/ML SYR IVP PRN (01:15)
[2022-10-29] MEDS ORDERED: ACETAMINOPHEN 325 MG TAB PO PRN (01:15)
[2022-10-29] MEDS ORDERED: LORazepam 2 MG/ML VIAL IVP PRN (01:15)
[2022-10-29] MEDS ORDERED: ONDANSETRON 4 MG/2 ML VIAL IVP PRN (01:15)
--- NOTE | 2022-10-29 02:25 | NUR ---
Report called to [facility]OHAN for transfer of care.
--- NOTE | 2022-10-29 02:35 | NUR ---
RECEIVED PT FROM ER VIA [facility]. PT IS AAOX4. SPEAKS COLOMBIAN AND HUNGARIAN. PT IS ON RA SATING 97%. NOT IN ANY DISTRESS. BREATHING EVEN AND UNLABORED. POC DISCUSSED. 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 WILL CONTINUE TO MONITOR THE PT.
--- NOTE | 2022-10-29 05:30 | NUR ---
PT IS SLEEPING COMFORTABLY IN BED. NOT IN ANY DISTRESS. BREATHING EVEN AND UNLABORED. WILL CONTINUE TO MONITOR THE PT.
--- NOTE | 2022-10-29 07:25 | NUR ---
ENDORSED PT TO DAY SHIFT RN FOR CONTINUITY OF CARE. PT IS STABLE.
--- NOTE | 2022-10-29 07:57 | NUR ---
RECEIVED PATIENT FROM PM NURSE FOR CONTINUATION OF OBSERVATION. PATIENT SEEN ON BED AWAKE. PATIENT VERBALIZES NO COMPLICATIONS OF THE MOMENTS. PATIENT REQUESTED FOR SOCKS. VITAL SIGNS NORMAL. OBSERVATION CONTINUED.
--- NOTE | 2022-10-29 09:07 | NUR ---
PATIENT HAS BEEN SCREENED AND CATEGORIZED LOW NUTRITION RISK. PATIENT WILL BE SEEN WITHIN 7 DAYS OF ADMISSION. 11/05/22 REVIEWED BY MARIA VICTORIA ARMAS RD
--- NOTE | 2022-10-29 10:40 | NUR ---
DC [age] YRS OLD MALE PATIENT WAS ADMITTED FROM HOME WITH A DX OF ASTHMA, THYROID CANCER HTN, AND DM. CXR SHOWED MINIMAL LEFT BASILAR SUBSEGMENTAL ATELECTASIS. ADMINISTERED ACS PROTOCOL MEDS. CONSULTED WITH CARDIO. DC PLAN TO GO HOME WHEN STABLE. CM TO FOLLOW
--- NOTE | 2022-10-29 14:21 | NUR ---
PATIENT SEEN ON BED USING CELLPHONE. PATIENT VERBALIZES NO CONCERNS. PATIENT ASKS WHEN HE WILL BE DISCHARGED. INFORMED MD CURRENTLY DOING ROUNDS
--- NOTE | 2022-10-29 18:40 | NUR ---
PATIENT SEEN AMBULATING AROUND UNIT. PATIENT VERBALIZES NO CONCERNSS. PATIENT ASKS IF HE WILL BE DISCHARGED TOMORROW.
[2022-10-29] MEDS ORDERED: ATOR40TA40 PO (19:03)
--- NOTE | 2022-10-29 19:10 | NUR ---
RECEIVED REPORT FROM DAY SHIFT RN. PT IS AWAKE AND WALKING AROUND IN ROOM. PT NOT IN ANY DISTRESS. DENIES PAIN. POC DISCUSSED. WILL CONTINUE TO MONITOR THE PT.
--- NOTE | 2022-10-29 19:44 | NUR ---
PT WAS DISCHARGE AND LEFT IN STABLE CONDITION.
--- NOTE | 2022-11-02 15:30 | NUR ---
CALLED DR MANUEL [facility]STR[facility]S OFFICE LOCATED AT [address] [phone]. SPOKE WITH IRINEO WHO WAS ABLE TO HELP ME SCHEDULE A HOSPITAL FOLLOW UP APPOINTMENT FOR 11/08/2022 AT 1000. CALLED PATIENT NO ANSWER AND UNABLE TO LEAVE MESSAGE CALLED PTN LADONNA WHO WAS LEFT A MESSAGE REGARDING THE ABOVE INFORMATION.
== END 2022-10-29 19:44 | disposition home or self-care (01) | DRG 198 ==
LOC: MED 20:25 → OBSVTOIN 10-29 01:18 → MTU 10-29 01:18
PROVIDERS: ADMIT Hospitalist; ATTEND Hospitalist
DX: I24.8 Other forms of acute ischemic heart disease (principal); E03.9 Hypothyroidism, unspecified; E11.9 Type 2 diabetes mellitus without complications; I10 Essential (primary) hypertension; J45.909 Unspecified asthma, uncomplicated; Z88.1 Allergy status to other antibiotic agents; Z88.5 Allergy status to narcotic agent; Z79.899 Other long term (current) drug therapy; Z90.49 Acquired absence of other specified parts of digestive tract; Z79.891 Long term (current) use of opiate analgesic
CPT/HCPCS: 36415; 71045; 80053; 83880; 84439; 84443; 84484; 85025; 87081; 99285; Q0092

== ENCOUNTER 2023-03-08 09:01 | Emergency (ER) | payer MEDICAID, OTHER ==
[~2023-03-08] VITALS: Ht 172.7 cm; Wt 79.8 kg
[~2023-03-08 09:01] MED LIST changes: -ACET-8905 PO; +ATOR40TA40 PO; -AZIL80TA PO; -AZIT250T4 PO; -CIPR500P1 PO; -CODE5SYR5 PO; -GUAI118L81 PO; -LEVO-481 PO; -METH750T5 PO; -METR500T1 PO; -MONT-72 PO; -NAPR-54 PO; -ONDA4TAB PO; -PRED20TA5 PO; -PROM118S5 PO; -ROB PO; +VIT1TABL36 PO; -[UNRECOGNIZED DRUG - CODE]; -[UNRECOGNIZED DRUG - CODE] PO
[2023-03-08 09:28] VITALS: BP 133/85; PULSE 68; RESP 18; TEMP 98.2; O2SAT 99
[2023-03-08] MEDS ORDERED: KETOROLAC 30 MG/ML VIAL ONE (10:53)
[2023-03-08] MEDS ORDERED: KETOROLAC 30 MG/ML VIAL IM ONE ×2 (10:55)
[2023-03-08 11:46] LABS: BASOPHILS # (AUTO) 0.1 K/uL (0.00-0.22); BASOPHILS % (AUTO) 1.3 % (0.0-2.0); EOSINOPHILS # (AUTO) 0.7 K/uL (0-0.4); EOSINOPHILS % (AUTO) 6.4 % (0.0-4.0); HEMATOCRIT 42.5 % (36-52); HEMOGLOBIN 13.8 g/dL (12.0-18.0); LYMPHOCYTES # (AUTO) 2.2 K/uL (2.0-11.5); LYMPHOCYTES % (AUTO) 21.3 % (20.5-51.1); MEAN CORPUSCULAR HEMOGLOBIN 27 pg (27-31); MEAN CORPUSCULAR HGB CONC 33 g/dL (33-37); MONOCYTES # (AUTO) 0.8 K/uL (0.8-1.0); MONOCYTES % (AUTO) 7.9 % (1.7-9.3); NEUTROPHILS # (AUTO) 6.5 K/uL (1.8-7.7); NEUTROPHILS % (AUTO) 63.1 % (42.2-75.2); PLATELET COUNT (AUTO) 571 K/uL (140-450); RED BLOOD CELL COUNT(AUTO) 5.19 MIL/uL (4.20-6.10); RED CELL DISTRIBUTION WIDTH 15.6 % (11.6-13.7); WHITE BLOOD COUNT (AUTO) 10.3 K/uL (4.8-10.8)
[2023-03-08 12:18] LABS: ANION GAP 10.7 (8-16); CALCIUM 8.3 mg/dL (8.5-10.1); CARBON DIOXIDE 28.1 mmol/L (21-32); POTASSIUM 3.8 mmol/L (3.5-5.1)
[2023-03-08 13:52] LABS: APPEARANCE,URINE CLEAR (CLEAR); BILIRUBIN,URINE NEGATIVE (NEGATIVE); BLOOD, URINE NEGATIVE (NEGATIVE); COLOR,URINE YELLOW (YELLOW); LEUKOCYTE ESTERASE ,URINE NEGATIVE (NEGATIVE); NITRITE, URINE NEGATIVE (NEGATIVE); PROTEIN,URINE NEGATIVE (NEGATIVE); UGLUCOSE TRACE (NEGATIVE); UROBILINOGEN,URINE 0.2 EU/dL (0.2 - 1)
[2023-03-08] MEDS ORDERED: BEN10 PO (14:24)
[2023-03-08] MEDS ORDERED: IBUP-2213 PO (14:24)
[2023-03-08] MEDS ORDERED: LID5T TP (14:25)
[2023-03-08] MEDS ORDERED: CYCL-711 PO (14:25)
[2023-03-08 14:42] LABS: BACTERIA,URINE OCCASSIONAL /HPF (None Seen); CALCIUM OXALATE CRYSTALS,UR 0-10 /HPF (None Seen); RBC,URINE 0-5 /HPF (0-5); SQUAMOUS EPITHELIAL CELL,UR 0-3 (FEW) /LPF (0-3 (FEW)); WBC,URINE 0-5 /HPF (0-5)
[2023-03-08 14:43] VITALS: BP 133/85; PULSE 68; RESP 18; TEMP 98.2; O2SAT 99
== END 2023-03-08 14:44 | disposition home or self-care (01) ==
LOC: MED 09:01
DX: N20.0 Calculus of kidney (principal); M54.50 Low back pain, unspecified; J45.909 Unspecified asthma, uncomplicated; E11.9 Type 2 diabetes mellitus without complications; I10 Essential (primary) hypertension; Z86.39 Personal history of other endocrine, nutritional and metabolic disease; Z79.899 Other long term (current) drug therapy; Z79.1 Long term (current) use of non-steroidal anti-inflammatories (NSAID); Z79.82 Long term (current) use of aspirin; Z88.5 Allergy status to narcotic agent; Z88.0 Allergy status to penicillin
CPT/HCPCS: 36415; 74176; 80048; 81001; 85025; 96372; 99285; J1885

== ENCOUNTER 2023-06-12 11:41 | Emergency (ER) | payer MEDICAID ==
[~2023-06-12] VITALS: Ht 172.7 cm; Wt 81.4 kg
[~2023-06-12 11:41] MED LIST changes: +BEN10 PO; +CYCL-711 PO; +IBUP-2213 PO; +LID5T TP
[2023-06-12 12:09] VITALS: BP 112/43; PULSE 78; RESP 18; TEMP 98.2; O2SAT 99
[2023-06-12] MEDS ORDERED: GABA300C PO (13:01)
[2023-06-12] MEDS ORDERED: ACYC400T14 PO (13:01)
[2023-06-12] MEDS ORDERED: ACET-8905 PO (13:01)
[2023-06-12] MEDS ORDERED: IBUP-2213 PO (13:01)
[2023-06-12] MEDS ORDERED: ACET-503 PO (13:09)
== END 2023-06-12 13:30 | disposition home or self-care (01) ==
LOC: MED 11:41
DX: B02.9 Zoster without complications (principal); J45.909 Unspecified asthma, uncomplicated; E11.9 Type 2 diabetes mellitus without complications; I10 Essential (primary) hypertension; Z79.899 Other long term (current) drug therapy; Z79.82 Long term (current) use of aspirin; Z88.5 Allergy status to narcotic agent; Z88.0 Allergy status to penicillin
CPT/HCPCS: 99283

== ENCOUNTER 2023-08-06 10:01 | Emergency (ER) | payer MEDICAID, OTHER ==
[~2023-08-06] VITALS: Ht 172.7 cm; Wt 78.9 kg
[~2023-08-06 10:01] MED LIST changes: +ACET-503 PO; +ACYC400T14 PO; +GABA300C PO
[2023-08-06 10:05] VITALS: BP 173/101; PULSE 80; RESP 18; TEMP 98; O2SAT 99
[2023-08-06] MEDS: METOPROLOL SUCCINATE 50 MG TABER PO ONE (10:31)
[2023-08-06] MEDS: ALBUTEROL SULFATE/IPRATROPIU 3 ML SOL IH ONE (10:43)
[2023-08-06 10:46] VITALS: PULSE 61; RESP 16; O2SAT 98
[2023-08-06 10:51] LABS: FLU A ANTIGEN negative (NEGATIVE); FLU B ANTIGEN negative (NEGATIVE)
[2023-08-06] MEDS ORDERED: AMOX-1230 PO (12:19)
[2023-08-06] MEDS ORDERED: PROM118S5 PO (12:19)
[2023-08-06] MEDS ORDERED: MUC600 PO (12:19)
[2023-08-06] MEDS: DEXAMETHASONE 10 MG/ML VIAL IM ONE (12:32)
[2023-08-06 12:45] VITALS: BP 145/82; PULSE 66; RESP 16; TEMP 98; O2SAT 99
== END 2023-08-06 12:45 | disposition home or self-care (01) ==
LOC: MED 10:01
DX: J20.9 Acute bronchitis, unspecified (principal); Z20.822 Contact with and (suspected) exposure to COVID-19; J45.909 Unspecified asthma, uncomplicated; E11.9 Type 2 diabetes mellitus without complications; I10 Essential (primary) hypertension; E03.9 Hypothyroidism, unspecified; Z79.899 Other long term (current) drug therapy; Z79.82 Long term (current) use of aspirin; Z88.5 Allergy status to narcotic agent
CPT/HCPCS: 71045; 87426; 87804; 94640; 96372; 99284; J1100; Q0092; 99285

== ENCOUNTER 2023-08-15 16:25 | Inpatient (IN) | payer OTHER ==
[~2023-08-15] VITALS: Ht 172.7 cm; Wt 79.8 kg
[~2023-08-15 16:25] MED LIST changes: +AMOX-1230 PO; +MUC600 PO; +PROM118S5 PO
[2023-08-15 16:37] VITALS: BP 152/92; PULSE 73; RESP 19; TEMP 98.2; O2SAT 98
[2023-08-15 17:26] LABS: BASOPHILS % (AUTO) 0.3 % (0.0-2.0); EOSINOPHILS # (AUTO) 0.7 K/uL (0-0.4); HEMATOCRIT 44.8 % (36-52); LYMPHOCYTES % (AUTO) 17.4 % (20.5-51.1); MEAN CORPUSCULAR HEMOGLOBIN 28 pg (27-31); MEAN CORPUSCULAR HGB CONC 33 g/dL (33-37); MEAN CORPUSCULAR VOLUME 82.5 fL (80-94); MONOCYTES % (AUTO) 8.8 % (1.7-9.3); NEUTROPHILS # (AUTO) 7.9 K/uL (1.8-7.7); NEUTROPHILS % (AUTO) 67.5 % (42.2-75.2); PLATELET COUNT (AUTO) 552 K/uL (140-450); RED BLOOD CELL COUNT(AUTO) 5.42 MIL/uL (4.20-6.10); RED CELL DISTRIBUTION WIDTH 15.8 % (11.6-13.7); WHITE BLOOD COUNT (AUTO) 11.7 K/uL (4.8-10.8)
[2023-08-15 17:48] LABS: ANION GAP 9.5 (8-16); CALCIUM 8.5 mg/dL (8.5-10.1); CARBON DIOXIDE 29.8 mmol/L (21-32); CREATININE 1.1 mg/dL (0.6-1.3); INR 0.96 (0.8-1.2); PARTIAL THROMBOPLASTIN TIME 28.1 secs (22-35.6); POTASSIUM 3.3 mmol/L (3.5-5.1); PROTHROMBIN TIME 10.1 secs (10.8-13.4)
[2023-08-15 17:59] LABS: APPEARANCE,URINE CLEAR (CLEAR); BILIRUBIN,URINE NEGATIVE (NEGATIVE); BLOOD, URINE NEGATIVE (NEGATIVE); COLOR,URINE YELLOW (YELLOW); LEUKOCYTE ESTERASE ,URINE NEGATIVE (NEGATIVE); NITRITE, URINE NEGATIVE (NEGATIVE); PROTEIN,URINE NEGATIVE (NEGATIVE); UGLUCOSE 2+ (NEGATIVE); UROBILINOGEN,URINE 0.2 EU/dL (0.2 - 1)
[2023-08-15] MEDS ORDERED: MONT-72 (18:49)
[2023-08-15] MEDS ORDERED: BECL10.62 INH (18:49)
[2023-08-15] MEDS ORDERED: AZIL80TA PO (18:49)
[2023-08-15] MEDS ORDERED: ATOR10TA51 PO (18:49)
[2023-08-15 19:40] VITALS: O2SAT 97
[2023-08-15] MEDS ORDERED: ONDANSETRON 4 MG/2 ML VIAL IVP PRN (21:05)
[2023-08-15] MEDS ORDERED: ACETAMINOPHEN 325 MG TAB PO PRN (21:05)
[2023-08-15] MEDS ORDERED: MORPHINE SULFATE 2 MG/ML SYR IVP PRN (21:05)
[2023-08-15] MEDS: NACL 0.9% 1,000 ML IV SCH (21:47)
[2023-08-15 22:25] VITALS: BP 143/82; PULSE 60; PULSE 64; RESP 18; TEMP 97.3; O2SAT 96; O2SAT 97
[2023-08-16] VITALS: BP 140/80; PULSE 60; RESP 18; TEMP 97.5; O2SAT 96
[2023-08-16 04:00] VITALS: BP 134/76; PULSE 59; PULSE 63; RESP 18; TEMP 97.1; O2SAT 96
[2023-08-16 06:55] LABS: BASOPHILS # (AUTO) 0.2 K/uL (0.00-0.22); BASOPHILS % (AUTO) 1.2 % (0.0-2.0); EOSINOPHILS # (AUTO) 0.7 K/uL (0-0.4); EOSINOPHILS % (AUTO) 5.1 % (0.0-4.0); HEMATOCRIT 43.2 % (36-52); HEMOGLOBIN 14.4 g/dL (12.0-18.0); LYMPHOCYTES # (AUTO) 2.5 K/uL (2.0-11.5); LYMPHOCYTES % (AUTO) 18.9 % (20.5-51.1); MEAN CORPUSCULAR HEMOGLOBIN 27 pg (27-31); MEAN CORPUSCULAR HGB CONC 33 g/dL (33-37); MEAN CORPUSCULAR VOLUME 82.2 fL (80-94); MONOCYTES # (AUTO) 1.2 K/uL (0.8-1.0); MONOCYTES % (AUTO) 9.2 % (1.7-9.3); NEUTROPHILS # (AUTO) 8.6 K/uL (1.8-7.7); NEUTROPHILS % (AUTO) 65.6 % (42.2-75.2); PLATELET COUNT (AUTO) 524 K/uL (140-450); RED BLOOD CELL COUNT(AUTO) 5.25 MIL/uL (4.20-6.10); RED CELL DISTRIBUTION WIDTH 16.4 % (11.6-13.7)
[2023-08-16 07:14] LABS: ANION GAP 12.2 (8-16); CALCIUM 7.8 mg/dL (8.5-10.1); CARBON DIOXIDE 27.9 mmol/L (21-32); CREATININE 0.9 mg/dL (0.6-1.3); POTASSIUM 3.1 mmol/L (3.5-5.1)
[2023-08-16 08:00] VITALS: BP 126/76; PULSE 59; PULSE 87; PULSE 95; RESP 18; TEMP 97.6; O2SAT 96
[2023-08-16] MEDS ORDERED: amLODIPine 5 MG TAB PO SCH (09:00)
[2023-08-16] MEDS ORDERED: LOSARTAN 50 MG TAB PO SCH (09:00)
[2023-08-16] MEDS ORDERED: ASPIRIN 300 MG SUPP RC SCH (11:05)
[2023-08-16 12:00] VITALS: BP 132/73; PULSE 59; PULSE 88; RESP 18; TEMP 97; O2SAT 97
[2023-08-16] MEDS: ECOTRIN 81 MG TABEC PO SCH (13:10)
[2023-08-16 16:00] VITALS: BP 142/82; PULSE 59; PULSE 60; TEMP 98; O2SAT 98
[2023-08-16 20:00] VITALS: BP 148/83; PULSE 72; PULSE 74; RESP 20; TEMP 98.2; O2SAT 96
[2023-08-16] MEDS: MEDS-TO-BEDS MC SCH (21:16)
[2023-08-16] MEDS: ATORVASTATIN 20 MG TAB PO SCH (21:23)
[2023-08-16] MEDS: POTASSIUM CHLORIDE 10 MEQ TABER PO ONE ×2 (23:00→23:30)
[2023-08-17] VITALS: BP 150/79; PULSE 62; RESP 18; TEMP 97.8; O2SAT 97
[2023-08-17 04:00] VITALS: BP 150/79; PULSE 59; PULSE 62; RESP 18; TEMP 97.8; O2SAT 97
[2023-08-17 08:00] VITALS: BP 149/91; PULSE 67; RESP 18; TEMP 97.9; O2SAT 97
[2023-08-17] MEDS: METOPROLOL SUCCINATE 50 MG TABER PO SCH (10:28)
[2023-08-17] MEDS: ECOTRIN 81 MG TABEC PO SCH (10:39)
[2023-08-17] MEDS: POTASSIUM CHLORIDE 10 MEQ TABER PO SCH (10:40)
[2023-08-17] MEDS: hydrALAZINE 25 MG TAB PO PRN (10:40)
[2023-08-17 12:00] VITALS: BP 152/85; PULSE 68; RESP 18; TEMP 97.8; O2SAT 98
[2023-08-17] MEDS ORDERED: CLOP-68 PO (13:44)
[2023-08-17 16:00] VITALS: PULSE 67
[2023-08-17] MEDS ORDERED: CLOPIDOGREL 75 MG TAB PO SCH (17:00)
[2023-08-18] MEDS ORDERED: LEVOTHYROXINE 0.1 MG TAB PO SCH (06:30)
== END 2023-08-17 16:55 | disposition home or self-care (01) | DRG 45 ==
LOC: MED 16:25 → MTU 21:08
PROVIDERS: ADMIT Hospitalist; ATTEND Hospitalist
DX: I63.9 Cerebral infarction, unspecified (principal); G81.91 Hemiplegia, unspecified affecting right dominant side; E11.9 Type 2 diabetes mellitus without complications; E87.6 Hypokalemia; J45.909 Unspecified asthma, uncomplicated; I10 Essential (primary) hypertension; Z79.82 Long term (current) use of aspirin; Z79.899 Other long term (current) drug therapy
CPT/HCPCS: 36415; 70450; 71045; 80048; 81003; 82948; 83735; 84484; 85025; 85610; 85730; 86886; 86900; 86901; 87081; 92526; 93005; 97116; 97163-GP; 99285; Q9967

== ENCOUNTER 2024-01-26 17:38 | Emergency (ER) | payer OTHER ==
[~2024-01-26] VITALS: Ht 172.7 cm; Wt 78.0 kg
[~2024-01-26 17:38] MED LIST changes: -ACET-503 PO; -ACYC400T14 PO; -ALBU0.0912 INH; -AMOX-1230 PO; +ATOR10TA51 PO; -ATOR40TA40 PO; +AZIL80TA PO; +BECL10.62 INH; -BEN10 PO; -BENZ-196 PO; -BUDE180P IH; -BUDE1AER IH; +CLOP-68 PO; -CYCL-711 PO; -IBUP-2213 PO; -LID5T TP; +MONT-72; -MUC600 PO; -PROM118S5 PO; -[UNRECOGNIZED DRUG - CODE] PO; -[UNRECOGNIZED DRUG - CODE] PO
[2024-01-26 17:52] VITALS: BP 181/101; PULSE 65; RESP 19; TEMP 98; O2SAT 98
[2024-01-26 18:26] VITALS: O2SAT 97
[2024-01-26 19:20] LABS: BASOPHILS # (AUTO) 0.1 K/uL (0.00-0.22); BASOPHILS % (AUTO) 1.1 % (0.0-2.0); EOSINOPHILS # (AUTO) 0.1 K/uL (0-0.4); EOSINOPHILS % (AUTO) 0.4 % (0.0-4.0); HEMATOCRIT 44.8 % (36-52); HEMOGLOBIN 14.7 g/dL (12.0-18.0); LYMPHOCYTES # (AUTO) 0.9 K/uL (2.0-11.5); LYMPHOCYTES % (AUTO) 8.4 % (20.5-51.1); MEAN CORPUSCULAR HEMOGLOBIN 29 pg (27-31); MEAN CORPUSCULAR HGB CONC 33 g/dL (33-37); MEAN CORPUSCULAR VOLUME 86.8 fL (80-94); MONOCYTES # (AUTO) 0.2 K/uL (0.8-1.0); MONOCYTES % (AUTO) 1.6 % (1.7-9.3); NEUTROPHILS % (AUTO) 88.5 % (42.2-75.2); PLATELET COUNT (AUTO) 519 K/uL (140-450); RED BLOOD CELL COUNT(AUTO) 5.16 MIL/uL (4.20-6.10); RED CELL DISTRIBUTION WIDTH 17.3 % (11.6-13.7); WHITE BLOOD COUNT (AUTO) 11.3 K/uL (4.8-10.8)
[2024-01-26 19:32] LABS: ANION GAP 11.4 (8-16); CALCIUM 8.7 mg/dL (8.5-10.1); CARBON DIOXIDE 29.5 mmol/L (21-32); CREATININE 1.2 mg/dL (0.6-1.3); POTASSIUM 3.9 mmol/L (3.5-5.1)
[2024-01-26] MEDS: CLONIDINE HYDROCHLORIDE 0.1 MG TAB PO ONE (20:09)
[2024-01-26 20:23] VITALS: BP 166/93; PULSE 70; RESP 19; TEMP 98; O2SAT 96
== END 2024-01-26 20:24 | disposition home or self-care (01) ==
LOC: MED 17:38
DX: I10 Essential (primary) hypertension (principal); R51.9 Headache, unspecified; J45.909 Unspecified asthma, uncomplicated; E11.9 Type 2 diabetes mellitus without complications; Z85.850 Personal history of malignant neoplasm of thyroid; Z90.49 Acquired absence of other specified parts of digestive tract; Z79.899 Other long term (current) drug therapy; Z79.82 Long term (current) use of aspirin; Z79.01 Long term (current) use of anticoagulants; Z88.5 Allergy status to narcotic agent
CPT/HCPCS: 36415; 70450; 71045; 80048; 84484; 85025; 93005; 99285; Q0092